=== PATIENT | male | born 1985 | race Caucasian/White ===

== ENCOUNTER 2016-09-17 18:11 | Emergency (ER) | payer OTHER ==
[~2016-09-17] VITALS: Ht 180.3 cm; Wt 104.1 kg
[2016-09-17 18:21] VITALS: Ht 180.3 cm; Wt 104.1 kg
[2016-09-17] MEDS ORDERED: OXYCODONE/ACETAMINOPHEN 5-325 TAB PO ONE (18:30)
--- NOTE | 2016-09-17 18:35 | EMERGENCY ROOM VISIT NOTE ---
History Report prepared by Raheem: Kailey Hawkins Under the Supervision of: Dr. Kj Miranda M.D. First contact with patient: 18:26 Chief Complaint: FALL Stated Complaint: FELL OFF OF 12FT LEDGE,HIT HEAD & LF SHOULDER History of Present Illness The patient is a 30 year old male who presents to the Emergency Room with complaints of an episode of a fall occurring 1.5 hours [employer]. He was on a ledge and fell 12-15 feet from the ledge, landing [place]. He went through a layer of ice in [place]. He states that he landed on the right side of his head. The patient denies LOC. He is currently experiencing right sided head pain, headache, right neck pain, and right shoulder pain. Movement exacerbates his pain. The patient rates his pain as an 8/10 in severity. He denies back pain, abdominal pain, and leg pain. Source of History: patient Onset: 1.5 hours [employer] Position: other (global) Symptom Intensity: 8/10 Timing: other (episode) Modifying Factors (Worsening): movement Associated Symptoms: + headache, + neck pain, No LOC, No abdominal pain, No back pain Note: Pt reports right shoulder pain. Review of Systems See HPI for pertinent positives & negatives. A total of 10 systems reviewed and were otherwise negative. Past Medical & Surgical Medical Problems: (1) Ankle pain (2) Ankle pain (3) Effusion of right elbow (4) Finger laceration involving tendon (5) Right elbow pain Family History No pertinent history stated. Social History Smoking Status: Never Smoker Marital Status: Housing Status: lives with family Occupation Status: employed Current/Historical Medications Scheduled PRN Oxycodone/Acetaminophen 5MG/325MG (Percocet 5MG/325MG), 1-2 TAB PO Q4H PRN for Pain Allergies Coded Allergies: Morphine (Unverified Allergy, Unknown, INTOLERANCE, 09/17/16) Physical Exam Vital Signs Date Time Temp Pulse Resp B/P Pulse Ox O2 Delivery O2 Flow Rate FiO2 09/17/16 19:59 37.1 76 18 111/76 99 09/17/16 19:45 76 18 111/76 99 Room Air 09/17/16 18:47 81 18 148/103 99 Room Air 09/17/16 18:39 84 09/17/16 18:28 143/101 09/17/16 18:21 37.1 77 18 158/96 98 Room Air Physical Exam GENERAL: Patient is a healthy-appearing well-nourished 30 year old male. HEAD: Normocephalic atraumatic EYES: Ocular movements intact pupils equal and react to light OROPHARYNX mucous membranes are moist no exudates present no erythema or edema present NECK: Cervical collar in place, tender to C3 area, no nuchal rigidity CHEST: Good equal expansion LUNGS: Clear and equal to auscultation CARDIAC: Normal S1 and S2 ABDOMEN: Soft nontender no guarding BACK: No CVA tenderness EXTREMITIES: No pain upon palpation normal muscle strength in all groups no clubbing cyanosis or edema. Tender to the right subscapular area, good ROM of the right shoulder, right arm is neurovascularly intact. NEURO: Patient is following commands is answering questions appropriately. Alert and oriented x3 Cranial Nerves 2-12 grossly intact Medical Decision & Procedures ER Provider Diagnostic Interpretation: Radiology results as stated below per my review and radiologist interpretation: RIGHT SHOULDER 3 VIEWS HISTORY: Pt c/o Rt shoulder pain s/p fall Right COMPARISON: None. FINDINGS: There is no fracture or dislocation. Soft tissues are unremarkable. No radiopaque foreign bodies. Mild thickening of the mid shaft of the right clavicle is likely due to an old, healed fracture. Mild AC joint arthropathy. IMPRESSION: No acute fracture or dislocation within the right shoulder. Electronically signed by: Lauri Ward M.D. 09/17/2016 7:31 PM Dictated Date/Time: 09/17/2016 7:[address]AST CT DOSE: 1163.18 mGy.cm HISTORY: Pt c/o 12 foot fall, head injury TECHNIQUE: Multiaxial CT images of the head were performed without the use of intravenous contrast. Automated exposure control was utilized for this study. Comparison: None. Findings: The paranasal sinuses and mastoid air cells are clear. The calvarium and skull base are intact. The ventricles and sulci are within normal limits. There is no mass, hematoma, midline shift, or acute infarct. Mild right posterior scalp swelling. Impression: No acute intracranial abnormality. Electronically signed by: Lauri Ward M.D. 09/17/2016 6:53 PM Dictated Date/Time: 09/17/2016 6:49 PM CHEST ONE VIEW PORTABLE HISTORY: Pt c/o Rt shoulder pain s/p fall COMPARISON: Chest 04/27/2012. FINDINGS: The lungs are clear. Cardiac silhouette is normal in size. No pleural effusions. No pneumothorax. There appears to be an old, healed right clavicle fracture. Increased markings within the left lateral lung base favors overlapping soft tissue. IMPRESSION: No acute process. Electronically signed by: Lauri Ward M.D. 09/17/2016 7:33 PM Dictated Date/Time: 09/17/2016 7:[address] DOSE: HISTORY: Pt c/o fall, right sided neck pain TECHNIQUE: Multiaxial CT images of the cervical spine were performed and reformatted in the sagittal and coronal plane without the use of contrast. COMPARISON: None. FINDINGS: No fractures. No subluxation. Prevertebral soft tissues and the C1-C2 interval are intact. No pneumothorax. Old, healed right clavicle fracture. IMPRESSION: No fractures within the cervical spine. Electronically signed by: Lauri Ward M.D. 09/17/2016 6:57 PM Dictated Date/Time: 09/17/2016 6:53 PM Medications Administered Medications (Trade) Dose Ordered Sig/Andres Route Start Time Stop Time Status Last Admin Dose Admin Oxycodone/ Acetaminophen (Percocet 5-325MG Tab) 2 tab NOW ONCE PO 09/17/16 18:30 09/17/16 18:31 DC 09/17/16 18:53 2 TAB ED Course 1825: Past medical records reviewed. The patient was evaluated in room A1. A complete history and physical examination was performed. 1829: Percocet 5-325 mg 1 tab PO 1941: I reassessed the patient at this time. He is feeling better and resting comfortably. I discussed the results and treatment plan with the patient. I answered all pertaining questions that he had. He expressed understanding and verbalized agreement. The patient will be discharged home. Medical Decision Differential diagnosis: Etiologies such as fracture, dislocation, intra-abdominal, pneumothorax, intrathoracic , intracranial, neurologic, as well as other traumatic pathologies were entertained. This is a 30-year-old male who presents emergency department After a 12 foot fall into a [place]. The patient is neurovascularly intact upon arrival. He is complaining of neck pain. For this reason sent for CAT scan of the head neck lower back. Patient's CAT scans do not show any evidence of acute fracture dislocation. Keeps also sent for x-rays of the shoulder which did not show any evidence of acute fracture dislocation. The patient was given Percocet in the emergency department. Repeat examination revealed improvement patient's symptoms. I do believe the patient is well enough to be discharged home for follow-up with the patient's primary care doctor. Patient was in agreement with the treatment plan. Impression Primary Impression: Head injury Additional Impressions: Neck pain Shoulder pain, right Fall Scribe Attestation The scribe's documentation has been prepared under my direction and personally reviewed by me in its entirety. I confirm that the note above accurately reflects all work, treatment, procedures, and medical decision making performed by me. Departure Information Dispostion Home / Self-Care Prescriptions Oxycodone/Acetaminophen 5MG/325MG (PERCOCET 5MG/325MG) Tab 1-2 TAB PO Q4H Y for Pain, #14 TAB Prov: Kj Miranda MD 09/17/16 Referrals Demetris Zaragoza MD (PCP) Forms HOME CARE DOCUMENTATION FORM, IMPORTANT VISIT INFORMATION, School Instructions, Work Instructions Patient Instructions ED Head Injury Closed, ED Neck Back Pain General, ED Shoulder Pain [facility], [facility] Additional Instructions Follow up with DR Ayala's office for continued pain within one week You received narcotic or benzodiazepene medication while in the emergency room today. Do not drive, operate heavy machinery, or drink alcohol under the influence of this medication. Take 600 mg Ibuprofen every 6 hours Take Percocet for breakthrough pain You have been examined and treated today on an emergency basis only. This is not a substitute for, or an effort to provide, complete comprehensive medical care. It is impossible to recognize and treat all injuries or illnesses in a single emergency department visit. It is therefore important that you follow up closely with Dr Zaragoza. Call as soon as possible for an appointment. Thank you for your time and consideration. I look forward to speaking with you again soon. Please don't hesitate to call us if you have any questions. Problem Qualifiers Primary Impression: Head injury Encounter type: initial encounter Qualified Codes: S09.90XA - Unspecified injury of head, initial encounter Additional Impressions: Shoulder pain, right Chronicity: acute Qualified Codes: M25.511 - Pain in right shoulder Fall Encounter type: initial encounter Qualified Codes: W19.XXXA - Unspecified fall, initial encounter
--- NOTE | 2016-09-17 18:55 | DIAGNOSTIC IMAGING REPORT ---
HEAD CT NONCONTRAST CT DOSE: 1163.18 mGy.cm HISTORY: Pt c/o 12 foot fall, head injury TECHNIQUE: Multiaxial CT images of the head were performed without the use of intravenous contrast. Automated exposure control was utilized for this study. Comparison: None. Findings: The paranasal sinuses and mastoid air cells are clear. The calvarium and skull base are intact. The ventricles and sulci are within normal limits. There is no mass, hematoma, midline shift, or acute infarct. Mild right posterior scalp swelling. Impression: No acute intracranial abnormality. Electronically signed by: Lauri Ward M.D. 09/17/2016 6:53 PM Dictated Date/Time: 09/17/2016 6:49 PM
--- NOTE | 2016-09-17 18:59 | DIAGNOSTIC IMAGING REPORT ---
CERVICAL SPINE CT CT DOSE: HISTORY: Pt c/o fall, right sided neck pain TECHNIQUE: Multiaxial CT images of the cervical spine were performed and reformatted in the sagittal and coronal plane without the use of contrast. COMPARISON: None. FINDINGS: No fractures. No subluxation. Prevertebral soft tissues and the C1-C2 interval are intact. No pneumothorax. Old, healed right clavicle fracture. IMPRESSION: No fractures within the cervical spine. Electronically signed by: Lauri Wrad M.D. 09/17/2016 6:57 PM Dictated Date/Time: 09/17/2016 6:53 PM
--- NOTE | 2016-09-17 19:33 | DIAGNOSTIC IMAGING REPORT ---
RIGHT SHOULDER 3 VIEWS HISTORY: Pt c/o Rt shoulder pain s/p fall Right COMPARISON: None. FINDINGS: There is no fracture or dislocation. Soft tissues are unremarkable. No radiopaque foreign bodies. Mild thickening of the mid shaft of the right clavicle is likely due to an old, healed fracture. Mild AC joint arthropathy. IMPRESSION: No acute fracture or dislocation within the right shoulder. Electronically signed by: Lauri Ward M.D. 09/17/2016 7:31 PM Dictated Date/Time: 09/17/2016 7:29 PM
--- NOTE | 2016-09-17 19:35 | DIAGNOSTIC IMAGING REPORT ---
CHEST ONE VIEW PORTABLE HISTORY: Pt c/o Rt shoulder pain s/p fall COMPARISON: Chest 04/27/2012. FINDINGS: The lungs are clear. Cardiac silhouette is normal in size. No pleural effusions. No pneumothorax. There appears to be an old, healed right clavicle fracture. Increased markings within the left lateral lung base favors overlapping soft tissue. IMPRESSION: No acute process. Electronically signed by: Lauri Ward M.D. 09/17/2016 7:33 PM Dictated Date/Time: 09/17/2016 7:30 PM
[2016-09-17] MEDS ORDERED: OXYC-57 PO (19:47)
[2016-09-17 19:59] VITALS: BP 111/76; PULSE 76; TEMP 37.1; O2SAT 99
== END 2016-09-17 19:59 | disposition home or self-care (01) ==
LOC: C.EDB 18:12 → C.ED 19:59
DX: S09.90XA Unspecified injury of head, initial encounter (principal); M25.511 Pain in right shoulder; M54.2 Cervicalgia; W17.89XA Other fall from one level to another, initial encounter

== ENCOUNTER 2017-07-28 11:24 | Emergency (ER) | payer OTHER ==
[~2017-07-28] VITALS: Ht 180.3 cm; Wt 105.1 kg
[2017-07-28 11:28] VITALS: TEMP 36.5; Ht 180.3 cm; Wt 105.1 kg
[2017-07-28] MEDS ORDERED: MoRPHine SULFATE 4 MG/ML 1 ML CARP\\VIAL IV STA (11:39)
[2017-07-28] MEDS ORDERED: ONDANSETRON INJ 2 MG/ML 2 ML VIAL IV STA (11:39)
[2017-07-28] MEDS ORDERED: CEFAZOLIN SOD 1000MG/5 ML IV PUSH IV STA (11:39)
[2017-07-28 11:48] VITALS: O2SAT 98
[2017-07-28] MEDS ORDERED: MoRPHine SULFATE 10 MG/ML CARP/VIAL IV STA (12:00)
[2017-07-28] MEDS ORDERED: XYLOCAINE 1%/SOD BICARB 20 ML VIAL INFIL ONE (12:15)
[2017-07-28] MEDS ORDERED: BUPIVACAINE 0.5 % 5 MG/1 ML MPF 30ML VIAL INFIL ONE (12:15)
--- NOTE | 2017-07-28 12:22 | DIAGNOSTIC IMAGING REPORT ---
R HAND MIN 3 VIEWS ROUTINE CLINICAL HISTORY: RIGHT, 2ND FINGER CAUGHT IN WOOD SPLITTER COMPARISON STUDY: None. FINDINGS: Slightly comminuted fractures at the base of the proximal phalanx of the right index finger with an associated overlying soft tissue laceration. The fracture slightly distracted. No dislocation. No radiopaque foreign bodies. IMPRESSION: Slightly comminuted and distracted fracture at the base of the proximal phalanx of the right index finger. Electronically signed by: Lauri Ward M.D. 07/28/2017 12:21 PM Dictated Date/Time: 07/28/2017 12:20 PM
[2017-07-28] MEDS ORDERED: CEPH500C2 PO (13:58)
[2017-07-28] MEDS ORDERED: OXYC1TAB3 PO (13:58)
--- NOTE | 2017-07-28 13:59 | EMERGENCY ROOM VISIT NOTE ---
ED Visit Note First contact with patient: 11:33 CHIEF COMPLAINT: Right second finger injury from a wood splitter HISTORY OF PRESENT ILLNESS: Patient is a [id number] 31-year-old white male who presents the emergency department accompanied by his for evaluation of a crush injury to the right second finger that he sustained just prior to arrival. He was wearing soft gloves, and accidentally caught the right second finger caught in the wood splitter, sustaining a crush injury to the right second finger. He did not remove the glove, and held pressure over the glove. He notes a constant, throbbing 10/10 pain. He denies any numbness or tingling. REVIEW OF SYSTEMS: Review of systems as per HPI. All other systems reviewed were negative. 10 systems reviewed. PMH: Electronic medical records are reviewed and summarized as above/below. See Problem List. Tetanus up-to-date, given in 2012. SOCIAL HISTORY: Patient lives at home with his family. He does not smoke. PHYSICAL EXAM: Vital Signs: Reviewed Nurse's notes. CONSTITUTIONAL: Patient is an expected be uncomfortable otherwise well appearing 31-year-old white female who is awake and alert and in mild distress due to his injury. MUSCULOSKELETAL : Examination of the right hand show a large laceration on the dorsal aspect of the right second finger, extending into the web space between the second and third finger, and terminating on the palmar aspect of the hand. The patient's right second finger is flexed at the PIP joint. Flap laceration was reflected, and proximal phalanx is visualized in the base of the wound with complete disruption of the extensor tendon structures between the MCP and the PIP. The patient can extend at the MCP only. He is able to flex the finger at the DIP joint the PIP and MCP. Sensation to light touch is grossly intact over the entire left second finger. There is no active pulsatile bleeding. Capillary refill is less than 2 seconds. Laceration measures 12 cm in length. EMERGENCY DEPARTMENT COURSE: The patient was seen and assessed as above. IV lock was initiated. He was medicated with a total of morphine 10 mg IV and Zofran 4 mg IV. He did given 1 g of Ancef IV. X-rays of the right hand were obtained. He has a distracted, comminuted fracture at the base of the right second proximal phalanx. After cleansing the base of the finger thoroughly with Betadine, a digital block was performed using a 2:1 mixture buffered lidocaine and 0.5% Sensorcaine. When adequate anesthesia was obtained, the finger was prepped thoroughly with Betadine, and draped sterilely. Wound was irrigated copiously using 250 mL of normal saline solution. There was no gross contamination or foreign debris in the wound. As stated above, the patient suffered a and injury to the extensor tendon between the MCP and the PIP. The proximal phalanx fracture was also visualized and palpable in the base of the wound. The finger could be fully extended passively, but the patient was in able to maintain extension on his own. The laceration was then repaired using 26 5-0 nylon sutures. The patient tolerated the procedure well. I did review patient' s injury and finger evaluation with attending physician, and with Dr. Reynolds of [facility]. He evaluated the patient in the emergency department, and plans to take the patient to the OR tomorrow. The patient was placed in a long metal finger splint in a position of comfort. He will be placed on Keflex due to the open fracture and the tendon disruption. He was provided oxycodone for pain. He was discharged home with family who were driving. Patient rated his discomfort a 7/10 at discharge. Differential diagnoses entertained include fracture, dislocation, nerve, vascular or tendon injury, among others. Medication reconciliation: I attest that I have personally reviewed the patient' s current medication list. Blood pressure screening : Patient was found to have normal blood pressure on screening and does not require follow-up. R HAND MIN 3 VIEWS ROUTINE CLINICAL HISTORY: RIGHT, 2ND FINGER CAUGHT IN WOOD SPLITTER COMPARISON STUDY: None. FINDINGS: Slightly comminuted fractures at the base of the proximal phalanx of the right index finger with an associated overlying soft tissue laceration. The fracture slightly distracted. No dislocation. No radiopaque foreign bodies. IMPRESSION: Slightly comminuted and distracted fracture at the base of the proximal phalanx of the right index finger. Problem List Medical Problems: (1) Ankle pain Status: Resolved (2) Ankle pain Status: Resolved (3) Effusion of right elbow Status: Resolved (4) Fall Status: Resolved (5) Finger laceration involving tendon Status: Resolved (6) Head injury Status: Resolved (7) Neck pain Status: Resolved (8) Right elbow pain Status: Resolved (9) Shoulder pain, right Status: Resolved Current/Historical Medications Scheduled Cephalexin Monohydrate (Keflex), 500 MG PO TID Scheduled PRN Oxycodone Immediate Rel Tab (Roxicodone Ir), 1-2 TAB PO Q4H PRN for Severe Pain Allergies Coded Allergies: Morphine (Unverified Allergy, Unknown, INTOLERANCE, 09/17/16) Vital Signs Date Time Temp Pulse Resp B/P (MAP) Pulse Ox O2 Delivery O2 Flow Rate FiO2 07/28/17 14:17 66 16 135/77 98 Room Air 07/28/17 12:17 63 07/28/17 11:48 59 20 122/70 98 Room Air 07/28/17 11:48 98 Room Air 07/28/17 11:28 36.5 71 18 136/72 97 Room Air Medications Administered Medications (Trade) Dose Ordered Sig/Andres Route Start Time Stop Time Status Last Admin Dose Admin Cefazolin Sodium (Cefazolin 1000mg Iv Push) 1,000 mg NOW STAT IV 07/28/17 11:39 07/28/17 11:41 DC 07/28/17 11:56 1,000 MG Ondansetron HCl (Zofran Inj) 4 mg NOW STAT IV 07/28/17 11:39 07/28/17 11:41 DC 07/28/17 11:46 4 MG Morphine Sulfate (MoRPHine SULFATE INJ) 4 mg NOW STAT IV 07/28/17 11:39 07/28/17 11:41 DC 07/28/17 11:46 4 MG Morphine Sulfate (MoRPHine SULFATE INJ) 6 mg NOW STAT IV 07/28/17 12:00 07/28/17 12:01 DC 07/28/17 12:05 6 MG Lidocaine HCl (Buffered Lidocaine 1% Inj) 20 ml ONE ONCE INFIL 07/28/17 12:15 07/28/17 12:16 DC 07/28/17 12:15 20 ML Bupivacaine HCl (Marcaine 0.5% MPF Inj) 30 ml NOW ONCE INFIL 07/28/17 12:15 07/28/17 12:16 DC 07/28/17 12:15 30 ML Oxycodone HCl (Roxicodone Immediate Rel Tab) 10 mg NOW STAT PO 07/28/17 14:39 07/28/17 14:40 DC 07/28/17 14:43 10 MG Departure Information Impression Primary Impression: Open fracture of finger of right hand Additional Impression: Finger laceration involving tendon Prescriptions Oxycodone Immediate Rel Tab (ROXICODONE IR) 5 Mg Tab 1-2 TAB PO Q4H Y for Severe Pain, #30 TAB For Initial Treatment Prov: Margot Moulton PA 07/28/17 Cephalexin Monohydrate (KEFLEX) 500 Mg Cap 500 MG PO TID, #40 CAP Prov: Margot Moulton PA 07/28/17 Referrals Demetris Zaragoza MD (PCP) Rodrigo Reynolds D.O. Patient Instructions [facility] Additional Instructions DO NOT drive, drink alcohol, operate machinery, or perform dangerous activities today. You were given medications in the ER that can affect your ability to safely function or operate a vehicle. Oxycodone (OxyIR) 5mg: Take 1-2 pills every four hours for breakthrough pain. Avoid alcohol, operating machinery or dangerous equipment, working on ladders or roofs, DRIVING, or situations where being under the influence may be dangerous. It is recommended to use an qcef-rfs-jycrkbi stool softener such as Colace, 100mg twice daily while taking this medication to avoid constipation. Cephalexin(Keflex) 500mg: Take one pill four times daily for 10 days for your skin infection. All antibiotics can cause diarrhea. If this occurs and you feel worse or it does not resolve in 1-2 days follow up with your doctor or return to the Emergency Department as this could be signs of serious underlying problems. Any medication can cause an allergic reaction, stop the pills immediately and return to the ER for rash, hives, breathing difficulties, or swelling. Ibuprofen(Motrin, Advil) may be used for fever or pain. Use 600mg every six hours as needed. Take with food. Avoid using more than 2400mg in a 24 hour period. Do not use 2400mg per day for more than three consecutive days without physician direction. Prolonged inappropriate use can lead to stomach upset or ulcers. (AND/OR) Acetaminophen(Tylenol) may be used for fever or pain. Use 1000mg every six hours as needed. Avoid using more than 3000mg in a 24 hour period. Keep wound clean and dry. Do not allow any crusting or dried blood to accumulate on sutures. Clean gently with mild soap and water. Use an antibiotic ointment for 3-4 days, then let wound dry. Return sooner for any signs of infection (increasing redness, swelling, drainage). Ice and elevate for swelling and pain. Wear the metal finger splint at all times. May remove for wound care only. Cover the hand to shower. Follow-up with [facility] as discussed. Problem Qualifiers
[2017-07-28 14:17] VITALS: BP 135/77; PULSE 66; O2SAT 98
[2017-07-28] MEDS ORDERED: OXYCODONE HCL IR 5 MG TAB (IMMEDIATE RELEASE) PO STA (14:39)
--- NOTE | 2017-07-28 15:35 | ORTHOPEDIC CONSULTATION ---
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 He had his right hand caught in log splitter. He was wearing soft gloves and sustained a crush injury to the right second digit. He did not remove the glove and he held pressure over the glove. He is noted to have a 10/10 pain, presented to the ER and seen by the Emergency Department physician senior office assistant who evaluated him and had x-rays performed. He is noted to have an open fracture of the proximal phalanx of the right index finger and an extensor tendon laceration. He had evaluation, administration of local anesthesia, copious irrigation of the right hand with sterile normal saline and after sterile prep, had the tissue flaps reapproximated with suture. He had a sterile compressive dressing and 1% lidocaine anesthesia after the hand was assessed. He was given 1 gram of Ancef and 10 mg of IV morphine. After the wound was repaired with suture, I was available to evaluate the patient and his injury. PAST MEDICAL HISTORY: Denies. Tetanus up to date, given in 2012. PAST SURGICAL HISTORY: Noncontributory. ALLERGIES: No known drug allergies. MEDICATIONS: Denies. SOCIAL HISTORY: He is employed as a gayathri. He is right-hand dominant. He has and children. Denies tobacco or drug use. He drinks occasionally. PHYSICAL EXAMINATION: GENERAL: This is a well-nourished, well-hydrated, 31-year-old right-hand dominant male who is present with his at bedside. He is lying supine in the hospital on the ER transfer cart. EXTREMITIES: Examination of the right hand demonstrates dorsal and volar lacerations adjacent to the right index finger. He is unable to actively extend the right index finger. Flexion is intact. He has tenderness to palpation at the proximal phalanx. He does have some sensation of the distal right index finger. Capillary refill is brisk, less than 2 seconds. There is some crepitation with palpation at the proximal phalanx of the right index finger. Rotational alignment is grossly well aligned on the right index finger. There is no significant ecchymosis of the digit. Some local erythema of the right index finger. No other involved lacerations of any associated digits or palm. IMAGING STUDIES: Radiograph demonstrates a mildly comminuted slightly displaced fracture of the proximal phalanx of the right index finger. No significant rotational abnormality. IMPRESSION: 1. Right index finger proximal phalanx fracture. 2. Extensor tendon laceration index finger. 3. Skin laceration, right index finger and palm. 4. Log splitter crush injury. RECOMMENDATION: The patient will continue on p.o. Keflex and Zofran as needed for nausea as well as oxycodone IR 5 mg 1-2 q. 4 hours p.r.n. pain, Keflex 500 mg 1 p.o. q.i.d. for 10 days, [id number] anti-inflammatories as needed. He will be n.p.o. after midnight as discussed with the patient and he will follow up at [facility] surgery center at 06:50 a.m. tomorrow for a planned surgical fixation of his proximal phalanx fracture and repair of extensor tendon laceration. This was discussed with the patient and the Emergency Department PA, all voiced understanding. The patient will continue with a soft dressing and volar Alumafoam splint and will be seen for definitive management in the morning. Thank you for the opportunity to consult in the care of this patient. SARI
== END 2017-07-28 14:48 | disposition home or self-care (01) ==
LOC: C.EDB 11:25 → C.EDD 14:48
DX: S62.610B Displaced fracture of proximal phalanx of right index finger, initial encounter for open fracture (principal); S66.520A Laceration of intrinsic muscle, fascia and tendon of right index finger at wrist and hand level, initial encounter; W31.89XA Contact with other specified machinery, initial encounter; Y93.89 Activity, other specified; Y99.8 Other external cause status; Z91.81 History of falling

== ENCOUNTER 2017-08-15 04:49 | Inpatient (IN) | payer OTHER ==
[~2017-08-15] VITALS: Ht 180.3 cm; Wt 102.9 kg
[~2017-08-15 04:49] MED LIST: CEPH500C2 PO; OXYC1TAB3 PO
[2017-08-15] MEDS ORDERED: KETOROLAC TROMETHAMINE 30 MG/ML VIAL IV STA (05:20)
[2017-08-15] MEDS ORDERED: LEVO1TAB33 PO (05:22)
[2017-08-15] MEDS ORDERED: ACET-1256 PO (05:23)
[2017-08-15] MEDS ORDERED: IBUP-1450 PO (05:24)
[2017-08-15] MEDS ORDERED: BENZ100C84 PO (05:25)
[2017-08-15] MEDS ORDERED: SODIUM CHLORIDE 0.9% 1000ML 1,000 ML IV ONE (05:30)
[2017-08-15 05:49] LABS: BASO % 0.1 %; BASO ABS # 0.01 K/uL (0-0.2); COMPLETE YES; EOS % 0.8 %; IG% 0.5 %; LYMPH % 8.8 %; LYMPH ABS # 1.16 K/uL (1.2-3.4); MEAN CELL VOLUME 89.8 fL (80-100); MEAN CORPUSCULAR HEMOGLOBIN 31.3 pg (25-34); MEAN CORPUSCULAR HGB CONC 34.9 g/dl (32-36); MONO % 9.6 %; NEUT % 80.2 %; PLATELET COUNT 275 K/uL (130-400); RED BLOOD COUNT 4.79 M/uL (4.7-6.1); WHITE BLOOD COUNT 13.25 K/uL (4.8-10.8)
[2017-08-15 05:56] LABS: BUN/CREATININE RATIO 11.3 (10-20); CALCIUM 8.9 mg/dl (8.5-10.1); CREATININE 1.08 mg/dl (0.60-1.40); POTASSIUM 3.6 mmol/L (3.5-5.1)
[2017-08-15 05:59] LABS: ALB/GLOB RATIO 0.7 (0.9-2)
[2017-08-15] MEDS ORDERED: OPTIRAY 320 IV PRN (06:15)
--- NOTE | 2017-08-15 07:23 | DIAGNOSTIC IMAGING REPORT ---
(CHEST FOR PE) ANGIO WITH CLINICAL HISTORY: 31 years-old Male presenting with ^Chest pain. Elevated dimer and trop.. TECHNIQUE: Multidetector CT angiography of the chest was performed after administration of intravenous contrast. 3-D volumetric and/or maximum intensity projection (MIP) images were subsequently reconstructed for review. IV contrast: 94 mL of Optiray 320. A dose lowering technique was used consistent with the principles of ALARA (as low as reasonably achievable). COMPARISON: Chest x-ray performed earlier the same day. CT DOSE (mGy.cm): The estimated cumulative dose is 647.29 mGy.cm. FINDINGS: Chandelier Maker topogram: Unremarkable. Pulmonary vasculature: The study is suboptimal given the timing of the contrast bolus and mild respiratory artifact limiting evaluation of subsegmental pulmonary arteries. Allowing for this, no central filling defect to suggest pulmonary embolus. Main pulmonary artery is not enlarged. No flattening of the interventricular septum. No intracardiac intracardiac filling defect. No reflux of contrast into the hepatic veins. Remaining chest: On soft tissue windows, normal thyroid and thoracic inlet. Small bilateral prominent hilar lymph nodes. Normal aorta. Normal heart size. No pericardial or pleural effusion. Upper abdomen normal. On lung windows, solid fissural 5 mm nodule in the right lower lobe (series 4 image 173) minimal mosaic attenuation at the lung bases could relate to the phase of respiration or indicate small airways disease. Mild bronchial wall thickening most pronounced in the lower lobes. Solid peripheral/subpleural 7 mm nodule in the left lower lobe (series 4 image 122). On bone windows, normal osseous structures. IMPRESSION: 1. No evidence of a central pulmonary embolus allowing for the timing of the contrast bolus and respiration. No acute intrathoracic pathology. 2. Two solid pulmonary nodules, one in the right lower lobe measuring 5 mm and one in the left lower lobe measuring 7 mm. Follow-up per Gabriel Society 2017 recommendations below. Please refer to below summary of Fleischner Society 2017 recommendations for follow-up of incidental CT nodules (Emerita Mcdowell et al. Guidelines for management of incidental pulmonary nodules detected on CT images: From the Fleischner Society 2017. Radiology 2017; 284: 228-243.) SOLID NODULES Single nodule; size < 6 mm * Low risk patients: No routine follow-up * High risk patients: Optional CT at 12 months Single nodule; size 6-8 mm * Low risk patients: CT at 6-12 months, then consider CT at 18-24 months * High risk patients: CT at 6-12 months, then at 18-24 months Single nodule; size > 8 mm * Either low or high risk patients: Considered CT at 3 months, PET/CT, or tissue sampling Multiple nodules; size < 6 mm * Low risk patients: No routine follow up * High risk patients: Optional CT at 12 months Multiple nodules; size 6-8 mm * Low risk patients: CT at 3-6 months, then consider CT at 18-24 months * High risk patients: CT at 3-6 months, then at 18-24 months Multiple nodules; size > 8 mm * Low risk patients: CT at 3-6 months, then consider at 18-24 months * High risk patients: CT at 3-6 months, then at 18-24 months Note: These guidelines apply to incidental nodules. These guidelines do not apply to patients younger than 35 years, immunocompromised patients, or patients with cancer. * Low risk patients: Minimal or absent history of smoking and/or other known risk factors * High risk patients: History of smoking, exposure to other carcinogens, emphysema, fibrosis, upper lobe location, family history of lung cancer, etc. * If a nodule up to 8 mm is partly solid or is ground glass, further follow-up is required after 24 months to exclude possible slow growing adenocarcinoma. SUBSOLID NODULES Single ground-glass nodule * Nodule size < 6 mm: No routine follow-up * Nodule size > or = 6 mm: CT at 6-12 months to confirm persistence, then CT every 2 years until 5 years Single part-solid nodule * Nodule size < 6 mm: No routine follow-up * Nodules size > or = 6 mm: CT at 3-6 months to confirm persistence. If unchanged and solid component remains < 6 mm, annual CT should be performed for 5 years Multiple nodules * Nodule size < 6 mm: CT at 3-6 months. If stable, consider CT at 2 and 4 years. * Nodules size > or = 6 mm: CT at 3-6 months. Subsequent management based on the most suspicious nodule(s) Electronically signed by: Ferny Walter M.D. 08/15/2017 7:22 AM Dictated Date/Time: 08/15/2017 7:13 AM
--- NOTE | 2017-08-15 07:38 | DIAGNOSTIC IMAGING REPORT ---
SINGLE VIEW CHEST CLINICAL HISTORY: Cough and fever. FINDINGS: An AP, portable, upright chest radiograph is compared to study dated 09/17/2016. The examination is degraded by portable technique and patient rotation. The cardiomediastinal silhouette is unremarkable. The lungs and pleural spaces are clear. No pneumothorax is seen. The bony thorax is grossly intact. IMPRESSION: No active disease in the chest. Electronically signed by: Carlos Roberts M.D. 08/15/2017 7:37 AM Dictated Date/Time: 08/15/2017 7:37 AM
[2017-08-15] MEDS ORDERED: ASPIRIN 324 MG CHEW PO STA (07:40)
--- NOTE | 2017-08-15 07:46 | EMERGENCY ROOM VISIT NOTE ---
ED Visit Note First contact with patient: 04:57 Patient seen and evaluated at bedside. Patient with no active complaints. Updated on all results and concerns given elevated troponin. CTA chest negative. No other obvious explanation for elevated troponin. Patient with no risk factors and the significant family history for early onset CAD. Doubt ACS. No evidence of other vascular etiology. Patient agreeable with plan for admission for additional evaluation and testing.
--- NOTE | 2017-08-15 07:53 | EMERGENCY ROOM VISIT NOTE ---
History First contact with patient: 04:57 Chief Complaint: CHEST PAIN Stated Complaint: CHEST PAIN 8/10,CHILLS AND FEVER FOR 48HR Nursing Triage Summary: midsternal cp that started last night at 1800,also c/o fever and chills since saturday, History of Present Illness The patient is a 31 year old male who presents to the Emergency Room with complaints of intermittent episodes of chest pain that is midsternal the began approximately 11 hours prior to arrival. The patient has a recent history of right hand surgery performed roughly 15 days ago at [facility]. He states that earlier this week he developed a fever of 103 to 104F. The patient went to his primary care physician where he had a negative influenza swab and normal chest x-ray. The patient has taken 3 days of Tamiflu and Levaquin at this point. He considers himself usually healthy without chronic medical disease. He does have a cough with this pain, however does not feel the chest pain is related to the cough. He has been alternating Advil and Tylenol at home, which does help with body aches and his temperature. He does not have additional complaints. Review of Systems More than 10 systems were reviewed and otherwise negative with the exception of history of present illness. Past Medical/Surgical History Medical Problems: (1) Ankle pain (2) Ankle pain (3) Effusion of right elbow (4) Fall (5) Finger laceration involving tendon (6) Head injury (7) Neck pain (8) No Known Active Medical Problems (9) Right elbow pain (10) Shoulder pain, right Family History No pertinent family history Social History Smoking Status: Never Smoker Marital Status: Housing Status: lives with family Occupation Status: employed Current/Historical Medications Scheduled Levofloxacin (Levaquin), 500 MG PO DAILY Scheduled PRN Acetaminophen (Tylenol), 1,000 MG PO DIRECTED PRN for Pain or Fever Benzonatate (Tessalon Perles), 100 MG PO Q6 PRN for Cough Ibuprofen (Motrin), 200-600 MG PO DIRECTED PRN for Pain or Fever Physical Exam Vital Signs Date Time Temp Pulse Resp B/P (MAP) Pulse Ox O2 Delivery O2 Flow Rate FiO2 08/15/17 06:31 87 21 125/78 99 08/15/17 06:01 87 21 120/83 97 08/15/17 05:31 88 20 141/90 95 08/15/17 05:18 92 22 141/97 97 08/15/17 05:04 84 08/15/17 05:00 97 Room Air 08/15/17 04:51 36.5 83 18 150/101 99 Room Air Physical Exam VITALS: Vitals are noted on the nurse's note and reviewed by myself. Vital signs stable. GENERAL: Well-developed, well-nourished, white male, who is in no acute distress and resting comfortably. Patient is cooperative with the examination. HEAD: Normocephalic atraumatic. EARS: External ear normal. External auditory canals clear, tympanic membranes pearly pugh without erythema or effusion bilaterally. EYES: Pupils equal round and reactive to light and accommodation. Conjunctivae without injection, sclerae without icterus. Extraocular movements intact. NOSE: Patent, turbinates without inflammation or discharge. MOUTH: Mucous membranes moist. Tonsils are not enlarged. Pharynx without erythema, blood, or exudate. Uvula midline. Airway patent. NECK: Supple without nuchal rigidity. No lymphadenopathy. No thyromegaly. Cervical spine is nontender. HEART: Regular rate and rhythm without murmurs gallops or rubs. LUNGS: Clear to auscultation bilaterally without wheezes, rales or rhonchi. No retractions or accessory muscle use. ABDOMEN: Positive normal bowel sounds x 4. Soft, nontender, without masses or organomegaly. No guarding or rebound tenderness. MUSCULOSKELETAL: No muscle atrophy, erythema, or edema noted. Full range of motion without joint tenderness in all extremities. Negative Homans sign bilateral. There is a well-healing surgical wound along the right second digit. Medical Decision & Procedures ER Provider Diagnostic Interpretation: (CHEST FOR PE) ANGIO WITH CLINICAL HISTORY: 31 years-old Male presenting with ^Chest pain. Elevated dimer and trop.. TECHNIQUE: Multidetector CT angiography of the chest was performed after administration of intravenous contrast. 3-D volumetric and/or maximum intensity projection (MIP) images were subsequently reconstructed for review. IV contrast: 94 mL of Optiray 320. A dose lowering technique was used consistent with the principles of ALARA (as low as reasonably achievable). COMPARISON: Chest x-ray performed earlier the same day. CT DOSE (mGy.cm): The estimated cumulative dose is 647.29 mGy.cm. FINDINGS: Electrician Station Assistant topogram: Unremarkable. Pulmonary vasculature: The study is suboptimal given the timing of the contrast bolus and mild respiratory artifact limiting evaluation of subsegmental pulmonary arteries. Allowing for this, no central filling defect to suggest pulmonary embolus. Main pulmonary artery is not enlarged. No flattening of the interventricular septum. No intracardiac intracardiac filling defect. No reflux of contrast into the hepatic veins. Remaining chest: On soft tissue windows, normal thyroid and thoracic inlet. Small bilateral prominent hilar lymph nodes. Normal aorta. Normal heart size. No pericardial or pleural effusion. Upper abdomen normal. On lung windows, solid fissural 5 mm nodule in the right lower lobe (series 4 image 173) minimal mosaic attenuation at the lung bases could relate to the phase of respiration or indicate small airways disease. Mild bronchial wall thickening most pronounced in the lower lobes. Solid peripheral/subpleural 7 mm nodule in the left lower lobe (series 4 image 122). On bone windows, normal osseous structures. IMPRESSION: 1. No evidence of a central pulmonary embolus allowing for the timing of the contrast bolus and respiration. No acute intrathoracic pathology. 2. Two solid pulmonary nodules, one in the right lower lobe measuring 5 mm and one in the left lower lobe measuring 7 mm. Follow-up per Gabriel Society 2017 recommendations below. Laboratory Results 08/15/17 05:00 Red Blood Count 4.79, Mean Corpuscular Volume 89.8, Mean Corpuscular Hemoglobin 31.3, Mean Corpuscular Hemoglobin Concent 34.9, Mean Platelet Volume 10.0, Neutrophils (%) (Auto) 80.2, Lymphocytes (%) (Auto) 8.8, Monocytes (%) (Auto) 9.6, Eosinophils (%) (Auto) 0.8, Basophils (%) (Auto) 0.1, Neutrophils # (Auto) 10.63, Lymphocytes # (Auto) 1.16, Monocytes # (Auto) 1.27, Eosinophils # (Auto) 0.11, Basophils # (Auto) 0.01 08/15/17 05:00 Test 08/15/17 05:00 08/15/17 05:34 08/15/17 06:43 White Blood Count 13.25 K/uL (4.8-10.8) Red Blood Count 4.79 M/uL (4.7-6.1) Hemoglobin 15.0 g/dL (14.0-18.0) Hematocrit 43.0 % (42-52) Mean Corpuscular Volume 89.8 fL (80-100) Mean Corpuscular Hemoglobin 31.3 pg (25-34) Mean Corpuscular Hemoglobin Concent 34.9 g/dl (32-36) Platelet Count 275 K/uL (130-400) Mean Platelet Volume 10.0 fL (7.4-10.4) Neutrophils (%) (Auto) 80.2 % Lymphocytes (%) (Auto) 8.8 % Monocytes (%) (Auto) 9.6 % Eosinophils (%) (Auto) 0.8 % Basophils (%) (Auto) 0.1 % Neutrophils # (Auto) 10.63 K/uL (1.4-6.5) Lymphocytes # (Auto) 1.16 K/uL (1.2-3.4) Monocytes # (Auto) 1.27 K/uL (0.11-0.59) Eosinophils # (Auto) 0.11 K/uL (0-0.5) Basophils # (Auto) 0.01 K/uL (0-0.2) RDW Standard Deviation 41.3 fL (36.4-46.3) RDW Coefficient of Variation 12.6 % (11.5-14.5) Immature Granulocyte % (Auto) 0.5 % Immature Granulocyte # (Auto) 0.07 K/uL (0.00-0.02) Anion Gap 6.0 mmol/L (3-11) Est Creatinine Clear Calc Drug Dose 118.4 ml/min Estimated GFR () 104.7 Estimated GFR (Non- 90.3 BUN/Creatinine Ratio 11.3 (10-20) Calcium Level 8.9 mg/dl (8.5-10.1) Total Bilirubin 0.6 mg/dl (0.2-1) Aspartate Amino Transf (AST/SGOT) 99 U/L (15-37) Alanine Aminotransferase (ALT/SGPT) 42 U/L (12-78) Alkaline Phosphatase 101 U/L (45-117) Total Protein 8.3 gm/dl (6.4-8.2) Albumin 3.4 gm/dl (3.4-5.0) Globulin 4.9 gm/dl (2.5-4.0) Albumin/Globulin Ratio 0.7 (0.9-2) Lipase 72 U/L (73-393) Bedside D-Dimer > 450 ng/mlFEU (0-450) Bedside Lactic Acid Venous 1.27 mmol/L (0.90-1.70) Bedside Troponin I 19.980 ng/ml (0-0.045) Troponin I 27.800 ng/ml (0-0.045) Medications Administered Medications (Trade) Dose Ordered Sig/Andres Route Start Time Stop Time Status Last Admin Dose Admin Sodium Chloride 1,000 ml @ 999 mls/hr Q1H1M ONCE IV 08/15/17 05:30 08/15/17 06:30 DC 08/15/17 05:47 999 MLS/HR Ketorolac Tromethamine (Toradol Inj) 30 mg NOW STAT IV 08/15/17 05:20 08/15/17 05:22 DC 08/15/17 05:40 30 MG Aspirin (Aspirin Chew) 324 mg NOW STAT PO 08/15/17 07:40 08/15/17 07:41 DC 08/15/17 07:46 324 MG ECG Change: Sinus rhythm with Premature ventricular complexes or Fusion complexes @91bpm Otherwise normal ECG When compared with ECG of 27-APR-2012 16:29, Fusion complexes are now Present Premature ventricular complexes are now Present ED Course Physical exam and history were performed. Nursing notes, EMR, and Medication List were personally reviewed. Patient appears to have fever, chest pain, cough, and flulike symptoms for the past several days. He does have a surgical event that occurred roughly 2 weeks ago. On examination the patient appears well without significant additional findings. IV access was established and labs were obtained. Blood cultures, troponin, d-dimer, and lactic acid were gathered. EKG was performed and is as above without obvious ectopy or ST elevation. The patient was hydrated and medicated as above. The patient's blood work is as above and was reviewed. He does have an elevated white blood cell count of greater than 13,000. He does not have a significant anemia or gross electrolyte imbalance. Both the patient's d-dimer and troponin are elevated. The case was discussed with my attending physician, Dr. tucker, who also independently evaluated the patient and remain involved in care and decision making. Because of the elevated d-dimer I did elect to perform a CT scan of the chest. CT scan does not show obvious PE, pneumonia, pericardial effusion, or other etiology of the patient's symptoms. I did elect to repeat a lab troponin, as well as a repeat EKG. Repeat EKG was essentially identical to previous EKG. The lab troponin was elevated at 28. Overall the patient continues remain in stable condition here in the department. He does not appear toxic or with significant pain at this time. He does not appear to fit with an ACS history and currently does not meet STEMI criteria. He is felt to have more of a myocarditis picture, and ultimately will need to stay in the hospital. The case was discussed with the [facility] hospitalist, who agreed to evaluate the patient here in the department. Please see their dictation for further patient course, plan, and disposition. The chart was completed utilizing Edgeware Speech Voice Recognition Software. Grammatical errors, random word insertions, pronoun errors, and incomplete sentences are an occasional consequence of this system due to software limitations, ambient noise, and hardware issues. Any formal questions or concerns about the content, text, or information contained within the body of this dictation should be directly addressed to the provider for clarification. . Medical Decision Differential diagnosis includes, but is not limited to: Myocardial infarction, dysrhythmia, pericarditis, pneumothorax, aortic aneurysm/dissection, DVT/PE, anxiety, GERD, PUD, electrolyte imbalance, thyroid disorder, pneumonia, bronchitis, pancreatitis, and others Blood Pressure Screening Patient's blood pressure: Normal blood pressure Impression Primary Impression: Elevated troponin Additional Impressions: Chest pain Flu-like symptoms Departure Information Referrals Demetris Zaragoza MD (PCP) Patient Instructions [facility] Problem Qualifiers
[2017-08-15 08:05] VITALS: O2SAT 98; Ht 180.3 cm; Wt 102.9 kg
[2017-08-15] MEDS ORDERED: BENZONATATE 100MG CAP PO PRN (08:45)
[2017-08-15] MEDS ORDERED: ACETAMINOPHEN 325 MG TAB PO PRN (08:45)
[2017-08-15 08:50] LABS: CHOLESTEROL/HDL RATIO 4.5
--- NOTE | 2017-08-15 08:56 | History and Physical ---
History & Physical Date & Time of Service: Aug 15, 2017 at 08:38 Chief Complaint: Chest Pain 8/10,Chills And Fever For 48HR Primary Care Physician: Demetris Zaragoza MD History of Present Illness Source: patient, family 31 year old M with PMH of surgery of right hand from traumatic injury and s/p repair with metal fixations and completed 2 week course of Keflex on Saturday, also with 2 and half weeks of flu like symptoms, was found to have fever of 102.1 F on Saturday08/12/17 as per patient, then went to his primary care doctor's office on Saturday08/13/17 with temperature of 103.5F, patient subsequently given Tamiflu for which he completed 3 doses and given Levaquin for which he completed 2 doses, was then having chest pain for 3 episodes before coming to emergency room. Patient reports last night having chest pain from 6 PM that lasted until 7:30 PM. Episode of chest pain before sleep. A third episode of chest pain around 3 AM . Patient was found to have labs significant for POC troponin of 19.98 with subsequent POC troponin of 27.8. D dimer elevated but CTA did not find evidence of a centralpulmonary embolism. CTA noted pulmonary nodules but no pneumonia. In the ED patient given Ketorolac and aspirin 324 mg. Patient seen by hospitalist with vitals of HR 83 bpm, blood pressure 110/74, and 98% saturation on room air. Patient has been afebrile in ER. Patient denies chest pain since being in the ER. Reports that his chest pain is from middle of the chest. No radiation of pain elsewhere. No reproducible tenderness on chest palpation. Patient reports that when he has chest pain, it has been worse when lying flat and feels better with standing upright and taking shows. Past Medical/Surgical History Medical Problems: (1) Ankle pain Status: Resolved (2) Ankle pain Status: Resolved (3) Effusion of right elbow Status: Resolved (4) Fall Status: Resolved (5) Finger laceration involving tendon Status: Resolved (6) Head injury Status: Resolved (7) Neck pain Status: Resolved (8) Right elbow pain Status: Resolved (9) Shoulder pain, right Status: Resolved Family History great grandparents had heart attack Social History Smoking Status: Never Smoker Alcohol Use: occasionally Marital Status: Occupational Status: employed Immunizations History of Tetanus Vaccine?: Yes History of Pneumococcal: No History of Hepatitis B Vaccine: Yes Multi-Drug Resistant Organisms History of MDRO: No Allergies Coded Allergies: Morphine (Unverified Allergy, Unknown, INTOLERANCE, 08/15/17) Home Medications Scheduled Levofloxacin (Levaquin), 500 MG PO DAILY Scheduled PRN Acetaminophen (Tylenol), 1,000 MG PO DIRECTED PRN for Pain or Fever Benzonatate (Tessalon Perles), 100 MG PO Q6 PRN for Cough Ibuprofen (Motrin), 200-600 MG PO DIRECTED PRN for Pain or Fever Review of Systems Constitutional: + fever Eyes: No worsening of vision, No eye pain, No redness, No discharge, No diplopia, No problem reported ENT: No hearing loss, No unusual epistaxis, No nasal symptoms, No sore throat, No tinnitus, No dental problems, No trouble swallowing, No problem reported Respiratory: + cough, No shortness of breath Cardiovascular: + chest pain, No edema, No palpitations Abdomen: No pain, No nausea, No vomiting, No diarrhea, No constipation, No GI bleeding, No problem reported Musculoskeletal: No joint pain, No muscle pain, No swelling, No calf pain, No problem reported Genitourinary - Male: No hematuria, No dysuria, No urinary frequency, No urinary urgency, No urinary hesitancy, No urinary retention, No urinary incontinence, No penile discharge, No lesions, No impotence, No problem reported Neurologic: No memory loss, No paralysis, No weakness, No numbness/tingling, No vertigo, No balance problems, No problem reported Psychiatric: No depression symptoms, No anhedonism, No anxiety, No insomnia, No substance abuse, No problem reported Endocrine: No fatigue, No excessive thirst, No excessive urination, No problem reported Hematologic / Lymphatic: No abnormal bleeding/bruising, No clotting problems, No swollen lymph nodes, No night sweats, No problem reported Physical Exam Vital Signs Date Time Temp Pulse Resp B/P (MAP) Pulse Ox O2 Delivery O2 Flow Rate FiO2 08/15/17 07:36 87 20 98 08/15/17 07:31 115/68 08/15/17 07:06 92 17 100 08/15/17 07:01 139/78 08/15/17 06:36 89 15 100 08/15/17 06:31 87 21 125/78 99 08/15/17 06:01 87 21 120/83 97 08/15/17 05:31 88 20 141/90 95 08/15/17 05:18 92 22 141/97 97 08/15/17 05:04 84 08/15/17 05:00 97 Room Air 08/15/17 04:51 36.5 83 18 150/101 99 Room Air General Appearance: no apparent distress Head: normocephalic, atraumatic Eyes: normal inspection, EOMI ENT: normal ENT inspection, hearing grossly normal, pharynx normal Neck: supple, no JVD, trachea midline Respiratory/Chest: chest non-tender, lungs clear, normal breath sounds, no respiratory distress, no accessory muscle use Cardiovascular: regular rate, rhythm, no edema, no JVD Abdomen/GI: normal bowel sounds, non tender, soft Back: normal inspection, no CVA tenderness, no muscle spasm, normal range of motion Extremities/Musculoskelatal: no calf tenderness, normal capillary refill, no pedal edema, normal range of motion, + pertinent finding (right hand in supports due to history of hand surgery) 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, no motor/sensory deficits, alert, oriented x 3 Skin: normal color, warm/dry Diagnostics Laboratory Results Results Past 24 Hours Test 08/15/17 05:00 08/15/17 05:34 08/15/17 06:43 08/15/17 08:03 Range/Units White Blood Count 13.25 4.8-10.8 K/uL Red Blood Count 4.79 4.7-6.1 M/uL Hemoglobin 15.0 14.0-18.0 g/dL Hematocrit 43.0 42-52 % Mean Corpuscular Volume 89.8 80-100 fL Mean Corpuscular Hemoglobin 31.3 25-34 pg Mean Corpuscular Hemoglobin Concent 34.9 32-36 g/dl Platelet Count 275 130-400 K/uL Mean Platelet Volume 10.0 7.4-10.4 fL Neutrophils (%) (Auto) 80.2 % Lymphocytes (%) (Auto) 8.8 % Monocytes (%) (Auto) 9.6 % Eosinophils (%) (Auto) 0.8 % Basophils (%) (Auto) 0.1 % Neutrophils # (Auto) 10.63 1.4-6.5 K/uL Lymphocytes # (Auto) 1.16 1.2-3.4 K/uL Monocytes # (Auto) 1.27 0.11-0.59 K/uL Eosinophils # (Auto) 0.11 0-0.5 K/uL Basophils # (Auto) 0.01 0-0.2 K/uL RDW Standard Deviation 41.3 36.4-46.3 fL RDW Coefficient of Variation 12.6 11.5-14.5 % Immature Granulocyte % (Auto) 0.5 % Immature Granulocyte # (Auto) 0.07 0.00-0.02 K/uL Sodium Level 135 136-145 mmol/L Potassium Level 3.6 3.5-5.1 mmol/L Chloride Level 103 98-107 mmol/L Carbon Dioxide Level 26 21-32 mmol/L Anion Gap 6.0 3-11 mmol/L Blood Urea Nitrogen 12 7-18 mg/dl Creatinine 1.08 0.60-1.40 mg/dl Est Creatinine Clear Calc Drug Dose 118.4 ml/min Estimated GFR () 104.7 Estimated GFR (Non- 90.3 BUN/Creatinine Ratio 11.3 10-20 Random Glucose 128 70-99 mg/dl Calcium Level 8.9 8.5-10.1 mg/dl Total Bilirubin 0.6 0.2-1 mg/dl Aspartate Amino Transf (AST/SGOT) 99 15-37 U/L Alanine Aminotransferase (ALT/SGPT) 42 12-78 U/L Alkaline Phosphatase 101 45-117 U/L Total Protein 8.3 6.4-8.2 gm/dl Albumin 3.4 3.4-5.0 gm/dl Globulin 4.9 2.5-4.0 gm/dl Albumin/Globulin Ratio 0.7 0.9-2 Lipase 72 73-393 U/L Bedside D-Dimer > 450 0-450 ng/mlFEU Bedside Lactic Acid Venous 1.27 0.90-1.70 mmol/L Bedside Troponin I 19.980 0-0.045 ng/ml Troponin I 27.800 0-0.045 ng/ml Creatine Kinase MB Ratio 0-3.0 Test 08/15/17 08:27 Range/Units Microbiology Results 08/15/17 Blood Culture, Received Pending 08/15/17 Blood Culture, Received Pending Diagnostic Radiology CTA chest 1. No evidence of a central pulmonary embolus allowing for the timing of the contrast bolus and respiration. No acute intrathoracic pathology. 2. Two solid pulmonary nodules, one in the right lower lobe measuring 5 mm and one in the left lower lobe measuring 7 mm. EKG 91 bpm Sinus rhythm with Premature ventricular complexes or Fusion complexes Otherwise normal ECG Impression Assessment and Plan Elevated troponins and chest pain labs significant for POC troponin of 19.98 with subsequent POC troponin of 27.8. in the ED patient given Ketorolac and aspirin 324 mg. standard troponin ordered with CK, CK MB, lipid panel, hBA1c, TSH echocardiogram ordered cardiology service consulted - presentation may be myocarditis but further workup up pending Respiratory - breathing on room air without desaturation patient had completed Tamiflu as outpatient Flu swab ordered D dimer elevated but CTA did not find evidence of a central pulmonary embolus . CTA noted pulmonary nodules but no pneumonia would not start home dosed Levaquin at this time given no evidence for pneumonia CTA did show Two solid pulmonary nodules, one in the right lower lobe measuring 5 mm and one in the left lower lobe measuring 7 mm, will monitor for nowjessica outpatient follow up of lung nodules Monitor for fevers Acetaminophen prn for pain and fevers Disposition: admission to telemetry, pending cardiology service evaluation VTE Prophylaxis VTE Risk Assessment Done? Y/N: Yes Risk Level: Moderate
[2017-08-15 09:03] LABS: BUN/CREATININE RATIO 11.2 (10-20); CALCIUM 8.4 mg/dl (8.5-10.1); CREATININE 0.93 mg/dl (0.60-1.40); POTASSIUM 3.8 mmol/L (3.5-5.1)
[2017-08-15 09:19] LABS: ALB/GLOB RATIO 0.7 (0.9-2); CKMB/CK RATIO 8.8 (0-3.0); THYROID STIMULATING HORMONE 4.23 uIu/ml (0.300-4.500)
[2017-08-15 09:33] LABS: ESTIMATED AVERAGE GLUCOSE 100 mg/dl; HA1C FLAG Normal (Normal)
[2017-08-15] MEDS: SODIUM CHLORIDE 0.9% 1000ML 1,000 ML IV SCH ×2 (11:02→20:45)
[2017-08-15] MEDS: METOPROLOL TARTRATE 25 MG TAB PO SCH ×2 (11:10→18:19)
[2017-08-15 11:46] LABS: BENZODIAZEPINE, URINE NEG (NEG); COCAINE,URINE NEG (NEG); PHENCYCLIDINE, URINE NEG (NEG)
--- NOTE | 2017-08-15 11:51 | ECHOCARDIOGRAM REPORT ---
*NOTICE TO RECEIVING [employer] This information is strictly Confidential and protected under [place] law. [place] law prohibits you from making any further disclosure of this information unless further disclosure is expressly permitted by the written consent of the person to whom it pertains or is authorized by law. A general authorization for the release of medical or other information is not sufficient for this purpose. Hospital accepts no responsibility if the information is made available to any other person, INCLUDING THE PATIENT. Interpretation Summary * Name: AGUSTIN CHRISTIANSON Study Date: 08/15/2017 08:56 AM BP: 115/68 mmHg * Patient Location: [facility] HR: 87 * : 1985 (M/d/yyyy) Gender: Male Height: 71 in * Age: 31 yrs Ethnicity: CA Weight: 221 lb * Ordering Physician: Esequiel Jacome MD, [facility] * Performed By: Kami Taylor RDCS * * Reason For Study: MYOCARDITIS * BSA: 2.2 m2 * -- Conclusions -- * Normal LV chamber size with mild concentric LVH. * Low normal LV systolic function, EF 50-55%. * No segmental left ventricular wall motion abnormalities are noted. * Grade I diastolic dysfunction. * The right ventricular cavity size is normal (basal dimension <4.2 cm in right ventricular apical 4-chamber view). The right ventricular systolic function is normal as assessed by tricuspid annular plane systolic excursion (TAPSE) (normal >1.5 cm). * No significant valvular pathology. * No valvular lesions identified within the scope of this imaging modality. * No significant pericardial effusions or pericardial thickening. Procedure Details * A complete two-dimensional transthoracic echocardiogram was performed (2D, M-mode, Doppler and color flow Doppler). Left Ventricle * The left ventricle is normal in size. * There is normal left ventricular wall thickness. * Ejection Fraction = 50-55%. * Left ventricular systolic function is low normal. * No segmental left ventricular wall motion abnormalities are noted. * The left ventricular wall motion is normal. Right Ventricle * The right ventricular cavity size is normal (basal dimension <4.2 cm in right ventricular apical 4-chamber view). * The right ventricular systolic function is normal as assessed by tricuspid annular plane systolic excursion (TAPSE) (normal >1.5 cm). Atria * The left atrial size is normal. * Right atrial size is normal. * No ASD detected; PFO is not assessed. Mitral Valve * The mitral valve is normal in structure and function. Tricuspid Valve * The tricuspid valve is normal in structure and function. Aortic Valve * The aortic valve is normal in structure and function. Pulmonic Valve * The pulmonary valve is not well seen, but the Doppler examination is normal without significant regurgitation or stenosis. Great Vessels * The aortic root and proximal ascending aorta are normal sized. Pericardium/Pleural * There is no pericardial effusion. Left Ventricular Diastolic Function * Grade I diastolic dysfunction, (abnormal relaxation pattern). MMode 2D Measurements and Calculations IVSd 1.4 cm IVSs 1.6 cm LVIDd 4.4 cm LVIDs 3.1 cm LVPWd 1.3 cm LVPWs 1.9 cm IVS/LVPW 1.1 FS 30.3 % EDV(Teich) 87.9 ml ESV(Teich) 37.0 ml EF(Teich) 57.9 % EDV(cubed) 85.5 ml ESV(cubed) 28.9 ml EF(cubed) 66.2 % % IVS thick 8.7 % % LVPW thick 48.6 % LV mass(C)d 231.8 grams LV mass(C)dI 105.4 grams/m\S\2 LV mass(C)s 210.6 grams LV mass(C)sI 95.7 grams/m\S\2 SV(Teich) 50.9 ml SI(Teich) 23.1 ml/m\S\2 SV(cubed) 56.5 ml SI(cubed) 25.7 ml/m\S\2 ACS 2.0 cm LA dimension 3.2 cm asc Aorta Diam 2.3 cm LVOT diam 2.1 cm LVOT area 3.4 cm\S\2 LVAd ap4 37.2 cm\S\2 LVLd ap4 9.4 cm EDV(MOD-sp4) 117.8 ml EDV(sp4-el) 124.4 ml LVAs ap4 21.0 cm\S\2 LVLs ap4 7.6 cm ESV(MOD-sp4) 51.2 ml ESV(sp4-el) 49.1 ml EF(MOD-sp4) 56.5 % EF(sp4-el) 60.5 % LVAd ap2 36.3 cm\S\2 LVLd ap2 9.4 cm EDV(MOD-sp2) 114.5 ml EDV(sp2-el) 119.3 ml LVAs ap2 21.5 cm\S\2 LVLs ap2 7.6 cm ESV(MOD-sp2) 49.5 ml ESV(sp2-el) 51.6 ml EF(MOD-sp2) 56.8 % EF(sp2-el) 56.8 % LVLd %diff -0.58 % EDV(MOD-bp) 116.0 ml LVLs %diff -0.43 % ESV(MOD-bp) 49.6 ml EF(MOD-bp) 57.2 % SV(MOD-sp4) 66.6 ml SI(MOD-sp4) 30.3 ml/m\S\2 SV(MOD-sp2) 65.0 ml SI(MOD-sp2) 29.5 ml/m\S\2 SV(MOD-bp) 66.4 ml SI(MOD-bp) 30.2 ml/m\S\2 SV(sp4-el) 75.3 ml SI(sp4-el) 34.2 ml/m\S\2 SV(sp2-el) 67.7 ml SI(sp2-el) 30.8 ml/m\S\2 Doppler Measurements and Calculations MV E max angel 50.8 cm/sec MV A max angel 58.9 cm/sec MV E/A 0.86 MV dec time 0.18 sec Ao V2 max 106.4 cm/sec Ao max PG 4.5 mmHg Ao max PG (full) 1.8 mmHg BEVERLY(V,A) 2.7 cm\S\2 BEVERLY(V,D) 2.7 cm\S\2 LV V1 max PG 2.8 mmHg LV V1 max 83.2 cm/sec PA V2 max 68.6 cm/sec PA max PG 1.9 mmHg
[2017-08-15 12:00] VITALS: BP 155/80; PULSE 91; TEMP 36.8; O2SAT 98; O2SAT 99
[2017-08-15] MEDS ORDERED: POTASSIUM CHLORIDE 10 MEQ TABCR PO ONE (12:00)
--- NOTE | 2017-08-15 12:36 | CARDIOLOGY CONSULTATION ---
DATE OF CONSULTATION: 08/15/2017 CONSULTATION REQUESTED BY: Dr. Argueta. REASON FOR CONSULTATION: Chest pain with elevated troponin. HISTORY OF PRESENT ILLNESS: Mr. Maddox is a very pleasant and normally very healthy 31-year-old gentleman, who presented to [facility] early in the a.m. of 08/15/2017 with a complaint of chest pain. The patient states that approximately 2 weeks ago, he injured his finger in a log splitting accident and underwent surgery with [facility]. He did well and recovering from surgery; however, few days later, he developed flu-like symptoms and was seen by his primary care physician, Dr. Zaragoza, who treated him for possible influenza and at the same time, acute sinusitis with Tamiflu and Levaquin. His influenza test came back negative and the Tamiflu stopped, but he continued with Levaquin. Ever since then he started to have waxing and waning fevers and myalgias, he states that he had fevers running into the 104s at home and he had been taking Tylenol for it. He states that he is not quite sure if the medicines helped much. It is just something that he has been dealing with. Luckily though, the hand did not seem to be infected at all. He denied any irritation, erythema, red streaks or pain. He states the pain has actually been lessening ever since the surgery. Then, late in the p.m. of 08/14/2017, he was sitting on the couch, watching television when he suddenly developed chest pain. He describes a sharp, stabbing sensation in the center of his chest that radiated up slightly across the precordium. He states it was sharp at first, ranking it at 7/10 and then became dull and achy and it went down to 4/10 after a few minutes. He denied any associated symptoms with it. Specifically, he denied any associated shortness of breath, nausea, palpitations, lightheadedness, dizziness, or syncope. He states he is not quite sure if he was diaphoretic with it since he has been having fevers off and on all throughout. This episode lasted approximately an hour and a half and then resolved for 2 hours. He then had another episode later on the evening, which was exactly similar, but the symptoms persisted. He became concerned and came into the Emergency Department. In the Emergency Department, his EKG was unremarkable; however, initial troponins were 28. He was given Toradol for the pain and his pain completely resolved. He was then admitted to telemetry. Currently, the patient is pain free at rest. He states he still feels a little feverish, but overall is feeling much better with no recurrences of the chest discomfort. He also denies any previous similar episodes in the past. Of note, the patient's [id number] recently was diagnosed with viral myocarditis with slight reduction of his LV systolic function according to the patient's and was treated as an outpatient. Otherwise, the patient has not spent any time in the champagne and denies any tick bites. PAST SURGICAL HISTORY: 1. Recent finger repair after trauma. 2. Hypospadias repair as an . MEDICAL ILLNESSES: Denies. FAMILY HISTORY: Denies any premature coronary artery disease or sudden cardiac . SOCIAL HISTORY: Denies any tobacco. Drinks very rare alcohol. Denies any recreational drug use. He is and lives at home with his . He has 3-year-old child and his is also . He is currently employed as a gayathri. REVIEW OF SYSTEMS: As per HPI. All other review of systems reviewed and negative at this time. ALLERGIES: No known drug allergies. MEDICATIONS AN OUTPATIENT: 1. Levaquin 750 mg daily for 10 days. 2. Oxycodone as needed after hand surgery. PHYSICAL EXAMINATION: VITAL SIGNS: Temperature 36.5, pulse 85, respiratory rate 12, and blood pressure 99/60. GENERAL: Awake, alert, and oriented x3, no acute distress. HEENT: Normocephalic and atraumatic. Pupils equal, round, and reactive to light and accommodation. Extraocular muscles intact. Anicteric sclerae. Moist mucous membranes. NECK: No JVD and no bruit. CARDIOVASCULAR: Regular. No S4. Normal S1 and S2. No S3. No murmurs, rubs or gallops. PULMONARY: Clear to auscultation bilaterally. No rales, rhonchi, or wheezing. ABDOMEN: Bowel sounds x4. Soft. No rebound, guarding, or tenderness. No organomegaly. EXTREMITIES: No clubbing, cyanosis or edema. Right index finger is bandaged. +2 pedal pulses bilaterally. SKIN: Warm and dry. TEST RESULTS: A 12-lead EKG performed in the Emergency Department independently reviewed at this time shows sinus rhythm with occasional PACs at 91 beats per minute, essentially normal study. No signs of active ischemia. Incomplete right bundle branch block. Follow up study approximately 1 hour later showed no ischemic changes. LABORATORY STUDIES OF SIGNIFICANCE: Initial point of care troponin of 20. Laboratory draw troponin of 28 followed by 25. CPK of 1400. Sodium 136, potassium 3.8, BUN 11, and creatinine 0.9. White count 13.2, hemoglobin 15, and platelet count 275. A 2D echocardiogram showed low normal LV systolic function with possibly borderline reduced LV systolic function, EF 50%-55% with no regional wall motion abnormalities, no significant valvular pathology, no signs of endocarditis or valvular lesions consistent with endocarditis within the scope of the imaging modality. IMPRESSION: Likely myocarditis. RECOMMENDATIONS: It was my pleasure to see Mr. Maddox in consultation today. Given the patient's presentation, his recent sick contacts who suffered from myocarditis as well and the fact that his EKG is normal and that he is now pain free after receiving NSAIDs, I believe his presentation is more consistent with a myocarditis pattern than acute coronary syndrome. So, the pathophysiology of which were discussed with the patient and his in great detail. They were counseled at this point given the fact he is pain free and his LV systolic function is not significantly reduced. Though, we will monitor him on telemetry for now to evaluate for any possible arrhythmias. We will plan on repeating a limited echocardiogram in 24 hours to follow his LV systolic function and start him on low dose beta blockade as well as normal saline. His potassium will also be supplemented and further recommendations will be made pending his clinical progression. Both the patient and his were counseled that should he have any significant clinical downturn or any significant reduction in his LV systolic function, then possible transfer to a tertiary care center for further care may be necessary, but again we will follow along for now. They were also counseled on the risks of possible arrhythmias, worsening cardiac function and possible , but again we will follow him for now.
[2017-08-15] MEDS ORDERED: INFLUENZA ADMINISTRATION CHARGE ONE (13:00)
[2017-08-15] MEDS ORDERED: INFLUENZA VIRUS QUAD VACCINE 0.5 ML SYR IM. ONE (13:00)
[2017-08-15 14:00] LABS: INFLUENZA A PCR Neg for Influ A (NEG); INFLUENZA B PCR Neg for Influ B (NEG)
[2017-08-15] MEDS: IBUPROFEN 600 MG TAB PO SCH ×2 (14:19→20:46)
[2017-08-15] MEDS ORDERED: HYDROmorphone INJ 1 MG/ML SYR IV STA (15:23)
[2017-08-15 15:43] VITALS: BP 147/98; PULSE 71; TEMP 36.9; O2SAT 97
[2017-08-15] MEDS ORDERED: COLCHICINE 0.6 MG TAB PO ONE (16:54)
[2017-08-15] MEDS ORDERED: OXYCODONE/ACETAMINOPHEN 5-325 TAB PO PRN (17:00)
[2017-08-15 19:35] VITALS: BP 151/60; PULSE 88; TEMP 36.7; O2SAT 96
[2017-08-15] MEDS: COLCHICINE 0.6 MG TAB PO SCH (20:46)
[2017-08-15 23:30] VITALS: BP 96/61; PULSE 79; TEMP 36.9; O2SAT 98
[2017-08-16] VITALS (10 sets, daily range): BP systolic 105–131; BP diastolic 69–80; PULSE 73–82; TEMP 36.5–37; O2SAT 97–99
[2017-08-16] MEDS ORDERED: VANCOMYCIN INJ 0 MG in SODIUM CHLORIDE 0.9% 250ML 250 ML IV STA (05:35)
[2017-08-16] MEDS ORDERED: VANCOMYCIN CONSULT ACTIVE PRN (05:45)
[2017-08-16] MEDS ORDERED: VANCOMYCIN INJ 2,500 MG in SODIUM CHLORIDE 0.9% 500ML 500 ML IV SCH (06:00)
[2017-08-16] MEDS: METOPROLOL TARTRATE 25 MG TAB PO SCH ×2 (06:09)
[2017-08-16] MEDS: SODIUM CHLORIDE 0.9% 1000ML 1,000 ML IV SCH (06:51)
[2017-08-16 07:01] LABS: BASO % 0.4 %; BASO ABS # 0.02 K/uL (0-0.2); COMPLETE YES; EOS % 3.5 %; HEMATOCRIT 37.6 % (42-52); IG% 1.2 %; LYMPH % 21.9 %; LYMPH ABS # 1.13 K/uL (1.2-3.4); MEAN CELL VOLUME 91.3 fL (80-100); MEAN CORPUSCULAR HEMOGLOBIN 30.8 pg (25-34); MEAN CORPUSCULAR HGB CONC 33.8 g/dl (32-36); MEAN PLATELET VOLUME 9.8 fL (7.4-10.4); MONO % 16.9 %; NEUT % 56.1 %; PLATELET COUNT 251 K/uL (130-400); RED BLOOD COUNT 4.12 M/uL (4.7-6.1); WHITE BLOOD COUNT 5.15 K/uL (4.8-10.8)
[2017-08-16 07:25] LABS: BUN/CREATININE RATIO 13.6 (10-20); CALCIUM 8.2 mg/dl (8.5-10.1); CREATININE 0.75 mg/dl (0.60-1.40); POTASSIUM 4.1 mmol/L (3.5-5.1)
[2017-08-16 07:32] LABS: ALB/GLOB RATIO 0.7 (0.9-2)
[2017-08-16] MEDS: IBUPROFEN 600 MG TAB PO SCH ×3 (08:11→23:31)
[2017-08-16] MEDS: COLCHICINE 0.6 MG TAB PO SCH ×2 (08:11→23:31)
--- NOTE | 2017-08-16 08:36 | ECHOCARDIOGRAM REPORT ---
*NOTICE TO RECEIVING [employer]ENCY This information is strictly Confidential and protected under [place] law. [place] law prohibits you from making any further disclosure of this information unless further disclosure is expressly permitted by the written consent of the person to whom it pertains or is authorized by law. A general authorization for the release of medical or other information is not sufficient for this purpose. Hospital accepts no responsibility if the information is made available to any other person, INCLUDING THE PATIENT. Interpretation Summary * Name: AGUSTIN CHRISTIANSON Study Date: 08/16/2017 07:08 AM BP: 105/69 mmHg * Patient Location: C.2T\S\E217\S\1 HR: 78 * : 1985 (M/d/yyyy) Gender: Male Height: 71 in * Age: 31 yrs Ethnicity: CA Weight: 221 lb * Ordering Physician: Rafael Carballo * Referring Physician: Self, Referred * Performed By: Ofe Gray RDCS * * Reason For Study: LIMITED ECHO FOR WALL MOTION * BSA: 2.2 m2 * -- Conclusions -- * No change compared to study of 08/15/17. * Normal LV chamber size with mild concentric LVH. * Low normal LV systolic function with possible borderline global hypokinesis, EF 50-55%. Procedure Details * Limited views were obtained. MMode 2D Measurements and Calculations IVSd 1.2 cm IVSs 1.6 cm LVIDd 4.1 cm LVIDs 3.1 cm LVPWd 1.4 cm LVPWs 1.9 cm IVS/LVPW 0.83 FS 24.5 % EDV(Teich) 73.7 ml ESV(Teich) 37.5 ml EF(Teich) 49.1 % EDV(cubed) 68.3 ml ESV(cubed) 29.4 ml EF(cubed) 56.9 % % IVS thick 36.9 % % LVPW thick 36.8 % LV mass(C)d 187.1 grams LV mass(C)dI 85.0 grams/m\S\2 LV mass(C)s 212.9 grams LV mass(C)sI 96.7 grams/m\S\2 SV(Teich) 36.1 ml SI(Teich) 16.4 ml/m\S\2 SV(cubed) 38.9 ml SI(cubed) 17.7 ml/m\S\2 LVAd ap4 35.5 cm\S\2 LVLd ap4 9.6 cm EDV(MOD-sp4) 106.9 ml EDV(sp4-el) 111.2 ml LVAs ap4 22.7 cm\S\2 LVLs ap4 8.2 cm ESV(MOD-sp4) 54.3 ml ESV(sp4-el) 53.1 ml EF(MOD-sp4) 49.2 % EF(sp4-el) 52.3 % LVAd ap2 26.7 cm\S\2 LVLd ap2 9.6 cm EDV(MOD-sp2) 61.0 ml EDV(sp2-el) 63.4 ml LVAs ap2 16.8 cm\S\2 LVLs ap2 7.9 cm ESV(MOD-sp2) 30.9 ml ESV(sp2-el) 30.4 ml EF(MOD-sp2) 49.4 % EF(sp2-el) 52.0 % LVLd %diff -0.56 % EDV(MOD-bp) 81.1 ml LVLs %diff -4.25 % ESV(MOD-bp) 41.7 ml EF(MOD-bp) 48.6 % SV(MOD-sp4) 52.5 ml SI(MOD-sp4) 23.9 ml/m\S\2 SV(MOD-sp2) 30.1 ml SI(MOD-sp2) 13.7 ml/m\S\2 SV(MOD-bp) 39.4 ml SI(MOD-bp) 17.9 ml/m\S\2 SV(sp4-el) 58.1 ml SI(sp4-el) 26.4 ml/m\S\2 SV(sp2-el) 33.0 ml SI(sp2-el) 15.0 ml/m\S\2
[2017-08-16] MEDS ORDERED: METOPROLOL TARTRATE 25 MG TAB PO ONE (09:39)
--- NOTE | 2017-08-16 10:35 | Cardiology Follow-Up ---
Subjective Subjective Date of Service: Aug 16, 2017. Pt evaluation today including: conversation w/ patient, physical exam, chart review, lab review, review of studies, review of inpatient medication list Additional Details: Pt seen and examined with at bedside, states that he's now pain free. Did have some chest pain last PM, I added colchicine and no pain since. Denies sob, palpitations, lightheadedness or dizziness. Tele reviewed: sinus rhythm with a 6 beat run of v-tach, no sustained arrhythmias Problem List Medical Problems: (1) Chest pain Status: Acute (2) Elevated troponin Status: Acute (3) Flu-like symptoms Status: Acute (4) Open fracture of finger of right hand Status: Acute Review of Systems Respiratory: No see HPI, No cough, No sputum, No wheezing, No shortness of breath, No dyspnea on exertion, No dyspnea at rest, No hemoptysis, No problem reported Cardiac: + chest pain, No see HPI, No orthopnea, No PND, No edema, No claudication, No palpitations, No problem reported Objective Vital Signs Last Vital Signs Documentation Date Time Temp Pulse Resp B/P (MAP) Pulse Ox O2 Delivery O2 Flow Rate FiO2 08/16/17 08:00 99 Room Air 08/16/17 07:33 37.0 76 20 106/71 (83) Physical Exam: General Appearance: WD/WN, no apparent distress Eyes: bilateral eyes normal inspection, bilateral eyes PERRL, bilateral eyes EOMI ENT: normal ENT inspection, hearing grossly normal, pharynx normal Neck: supple, no adenopathy, thyroid normal, no JVD, no carotid bruits, trachea midline Respiratory/Chest: chest non-tender, lungs clear, normal breath sounds, no respiratory distress, no accessory muscle use Cardiovascular: regular rate, rhythm, no edema, no JVD, no murmur, + gallop/S4 (questionable) Abdomen: normal bowel sounds, non tender, soft, no organomegaly, no pulsatile mass Extremities: normal inspection, no pedal edema, no calf tenderness, + pertinent finding (right index finger bandaged) 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 myopericarditis initial presentation with sharp chest pain, elevated troponin and normal EKG echo revealed low normal LV function without regional wall motion abnormality and no significant pericardial effusion treated pain as pericardial pain and now resolved now with slight nonspecific EKG changes, likely sequelae of myopericarditis, no overt ischemia troponin trending down no significant arrhythmias on monitor really no role for MRI at this point with normal function, would not change treatment plan to be on the safe side would send home with a 1 week MCOT monitor to follow for ventricular arrhythmias, my office will place d/c home on ibuprofen 600mg TID with food and colchicine 0.6mg bid for 3 months follow with me as outpatient in 2-4 weeks return to ER with symptoms ok to d/c to home from cardiac standpoint
[2017-08-16] MEDS ORDERED: METOPROLOL TARTRATE 25 MG TAB PO SCH ×2 (12:00→21:00)
--- NOTE | 2017-08-16 12:35 | Progress Note ---
Internal Med Progress Note Date of Service: Aug 16, 2017. Provider Documentation: SUBJECTIVE: Patient reports chest pain symptoms have been resolving since yesterday. OBJECTIVE: Vital Signs-as noted below Exam: General Appearance: WD/WN, no apparent distress Eyes: bilateral eyes normal inspection, bilateral eyes EOMI ENT: normal ENT inspection, hearing grossly normal, pharynx normal Neck: supple, no JVD, trachea midline Respiratory/Chest: chest non-tender, lungs clear, normal breath sounds, no respiratory distress, no accessory muscle use Cardiovascular: regular rate, rhythm, no edema Abdomen: normal bowel sounds, non tender, soft, no organomegaly, no pulsatile mass Extremities: normal inspection, no pedal edema, no calf tenderness, right index finger bandaged Neurologic/Psychiatric: no motor/sensory deficits, alert, normal mood/affect, oriented x 3 Skin: normal color, warm/dry, no rash Lymphatic: no adenopathy ASSESSMENT & PLAN: Cardiology note on 08/16/17 and diagnosis of myopericarditis "initial presentation with sharp chest pain, elevated troponin and normal EKG echo revealed low normal LV function without regional wall motion abnormality and no significant pericardial effusion treated pain as pericardial pain and now resolved now with slight nonspecific EKG changes, likely sequelae of myopericarditis, no overt ischemia troponin trending down no significant arrhythmias on monitor really no role for MRI at this point with normal function, would not change treatment plan to be on the safe side would send home with a 1 week MCOT monitor to follow for ventricular arrhythmias, my office will place d/c home on ibuprofen 600mg TID with food and colchicine 0.6mg bid for 3 months follow with me as outpatient in 2-4 weeks return to ER with symptoms" However patient has 1 positive blood culture for gram positive cocci out of the 2 blood cultures drawn on 08/15/17 on admission. Patient was started on Vancomycin. Monitor renal function while on Vancomycin and Vancomycin Trough levels if needed Disposition: Patient to remain in hospital to received IV antibiotics until speciation of gram positive cocci. It is unclear whether this a true infection or contaminant. Repeat blood cultures drawn on 08/16/17 Other issues CTA showed Two solid pulmonary nodules, one in the right lower lobe measuring 5 mm and one in the left lower lobe measuring 7 mm, will monitor for now, jessica outpatient follow up of lung nodules DVT prophylaxis Vital Signs: Date Time Temp Pulse Resp B/P (MAP) Pulse Ox O2 Delivery O2 Flow Rate FiO2 08/16/17 12:00 99 Room Air 08/16/17 11:17 36.9 81 20 123/80 (94) 97 Room Air 08/16/17 08:00 99 Room Air 08/16/17 07:33 37.0 76 20 106/71 (83) 97 Room Air 08/16/17 06:09 105/69 (81) 08/16/17 04:00 Room Air 08/16/17 03:33 36.7 78 18 107/72 (84) 98 Room Air 08/16/17 00:01 Room Air 08/15/17 23:30 36.9 79 18 96/61 (73) 98 Room Air 08/15/17 20:00 Room Air 08/15/17 19:35 36.7 88 18 151/60 (90) 96 08/15/17 16:00 Room Air 08/15/17 15:43 36.9 71 18 147/98 (114) 97 Room Air Lab Results: Results Past 24 Hours Test 08/15/17 15:44 08/15/17 16:08 08/15/17 22:00 08/16/17 06:47 Range/Units Troponin I 17.300 35.000 19.300 0-0.045 ng/ml Bedside Glucose 96 70-99 mg/dl White Blood Count 5.15 4.8-10.8 K/uL Red Blood Count 4.12 4.7-6.1 M/uL Hemoglobin 12.7 14.0-18.0 g/dL Hematocrit 37.6 42-52 % Mean Corpuscular Volume 91.3 80-100 fL Mean Corpuscular Hemoglobin 30.8 25-34 pg Mean Corpuscular Hemoglobin Concent 33.8 32-36 g/dl Platelet Count 251 130-400 K/uL Mean Platelet Volume 9.8 7.4-10.4 fL Neutrophils (%) (Auto) 56.1 % Lymphocytes (%) (Auto) 21.9 % Monocytes (%) (Auto) 16.9 % Eosinophils (%) (Auto) 3.5 % Basophils (%) (Auto) 0.4 % Neutrophils # (Auto) 2.89 1.4-6.5 K/uL Lymphocytes # (Auto) 1.13 1.2-3.4 K/uL Monocytes # (Auto) 0.87 0.11-0.59 K/uL Eosinophils # (Auto) 0.18 0-0.5 K/uL Basophils # (Auto) 0.02 0-0.2 K/uL RDW Standard Deviation 43.6 36.4-46.3 fL RDW Coefficient of Variation 13.1 11.5-14.5 % Immature Granulocyte % (Auto) 1.2 % Immature Granulocyte # (Auto) 0.06 0.00-0.02 K/uL Sodium Level 138 136-145 mmol/L Potassium Level 4.1 3.5-5.1 mmol/L Chloride Level 108 98-107 mmol/L Carbon Dioxide Level 25 21-32 mmol/L Anion Gap 5.0 3-11 mmol/L Blood Urea Nitrogen 10 7-18 mg/dl Creatinine 0.75 0.60-1.40 mg/dl Est Creatinine Clear Calc Drug Dose 170.6 ml/min Estimated GFR () 140.7 Estimated GFR (Non- 121.4 BUN/Creatinine Ratio 13.6 10-20 Random Glucose 103 70-99 mg/dl Calcium Level 8.2 8.5-10.1 mg/dl Total Bilirubin 0.4 0.2-1 mg/dl Aspartate Amino Transf (AST/SGOT) 117 15-37 U/L Alanine Aminotransferase (ALT/SGPT) 51 12-78 U/L Alkaline Phosphatase 73 45-117 U/L Total Protein 6.7 6.4-8.2 gm/dl Albumin 2.8 3.4-5.0 gm/dl Globulin 3.9 2.5-4.0 gm/dl Albumin/Globulin Ratio 0.7 0.9-2 Test 08/16/17 09:49 Range/Units Microbiology Results 08/16/17 Blood Culture, Received Pending 08/16/17 Blood Culture, Received Pending
--- NOTE | 2017-08-16 13:11 | Pharmacy Progress Note ---
Pharmacy Abx Initial Consult Date of Service Aug 16, 2017. Pharmacy Dosing Scope Date of Consult: 08/16/17 Consultation requested by: Dr. Koch Pharmacy is consulted to initiate Vancomycin IV dosing therapy, order appropriate labs and adjust drug dose/frequency. Subjective The patient is a 31 year old male admitted on Aug 15, 2017 at 08:35. Objective Height (Feet): 5 Height (Inches): 11.00 Weight (Kilograms): 100.300 Vital Signs (Past 12Hrs) Vital Signs Past 12 Hours Date Time Temp Pulse Resp B/P (MAP) Pulse Ox O2 Delivery O2 Flow Rate FiO2 08/16/17 12:00 99 Room Air 08/16/17 11:17 36.9 81 20 123/80 (94) 97 Room Air 08/16/17 08:00 99 Room Air 08/16/17 07:33 37.0 76 20 106/71 (83) 97 Room Air 08/16/17 06:09 105/69 (81) 08/16/17 04:00 Room Air 08/16/17 03:33 36.7 78 18 107/72 (84) 98 Room Air Lab Results (24Hrs) Item Value Date Time Creatinine 0.75 mg/dl 08/16/17 0647 Est Creatinine Clear Calc Drug Dose 170.6 ml/min 08/16/17 0647 Estimated GFR () 140.7 08/16/17 0647 Estimated GFR (Non- 121.4 08/16/17 0647 Laboratory Tests (24 Hours) Test 08/16/17 06:47 White Blood Count 5.15 K/uL (4.8-10.8) Red Blood Count 4.12 M/uL (4.7-6.1) L Hemoglobin 12.7 g/dL (14.0-18.0) L Hematocrit 37.6 % (42-52) L Mean Corpuscular Volume 91.3 fL (80-100) Mean Corpuscular Hemoglobin 30.8 pg (25-34) Mean Corpuscular Hemoglobin Concent 33.8 g/dl (32-36) Platelet Count 251 K/uL (130-400) Mean Platelet Volume 9.8 fL (7.4-10.4) Neutrophils (%) (Auto) 56.1 % Lymphocytes (%) (Auto) 21.9 % Monocytes (%) (Auto) 16.9 % Eosinophils (%) (Auto) 3.5 % Basophils (%) (Auto) 0.4 % Neutrophils # (Auto) 2.89 K/uL (1.4-6.5) Lymphocytes # (Auto) 1.13 K/uL (1.2-3.4) L Monocytes # (Auto) 0.87 K/uL (0.11-0.59) H Eosinophils # (Auto) 0.18 K/uL (0-0.5) Basophils # (Auto) 0.02 K/uL (0-0.2) Micro Results Date/Time Source Procedure Growth Status 08/16/17 08:26 Blood Blood Culture Pending Received 08/16/17 08:19 Blood Blood Culture Pending Received 08/15/17 06:43 Blood Blood Culture - Preliminary Gram Positive Cocci Resulted 08/15/17 05:00 Blood Blood Culture - Preliminary NO GROWTH TO DATE. Resulted Risk Factors for Resistance * Hospitalization for 48 hours or more within the past 90 days * Antimicrobial use within the last 90 days (keflex 2 weeks completed 08/10/17, tamiflu x 3 doses, levaquin x 2 doses) Assessment & Plan Assessment 31 year old male with PMH of surgery of right hand from traumatic injury and s/ p repair with metal fixations and completed 2 week course of Keflex on Saturday08/10/17, also with 2 and half weeks of flu like symptoms, was found to have fever of 102.1 F on Saturday08/12/17 as per patient, then went to his primary care doctor's office on Saturday08/13/17 with temperature of 103.5F, patient subsequently given Tamiflu for which he completed 3 doses and given Levaquin for which he completed 2 doses, was then having chest pain for 3 episodes before coming to emergency room. Patient to remain in hospital to received IV antibiotics until speciation of gram positive cocci. It is unclear whether this a true infection or contaminant. Repeat blood cultures drawn on 08/16/17 Plan Vancomycin for treatment of Bacteremia Vancomycin IV * Loading dose: 2,500 mg (25 mg/kg) * Maintenance dose: 1,750 mg IV (17.5 mg/kg) every 8 hours * Goal trough level for Bacteremia : 15 to 20 mcg/mL * Trough/Random level ordered for 08/17/17 @4530 Pharmacy will continue to follow and will adjust dose/frequency as necessary. Thank you.
[2017-08-16 14:41] LABS: URINE APPEARANCE CLEAR (CLEAR); URINE BILIRUBIN NEG (NEG); URINE COLOR YELLOW; URINE NITRITE NEG (NEG); URINE SPECIFIC GRAVITY 1.032 (1.000-1.030); UROBILINOGEN NEG (NEG)
[2017-08-16 14:45] LABS: MANUAL MICROSCOPIC REQUIRED? NO; REVIEW REQ? NO
[2017-08-16] MEDS: VANCOMYCIN INJ 1,750 MG in SODIUM CHLORIDE 0.9% 500ML 500 ML IV SCH ×2 (15:48→23:33)
[2017-08-17 04:03] VITALS: BP 118/74; PULSE 62; TEMP 36.7; O2SAT 99
[2017-08-17] MEDS ORDERED: VANCOMYCIN TROUGH ONE (07:30)
[2017-08-17 07:38] VITALS: BP 113/76; PULSE 87; TEMP 36.7; O2SAT 95
[2017-08-17 07:58] LABS: BASO % 0.7 %; BASO ABS # 0.04 K/uL (0-0.2); COMPLETE YES; EOS % 3.1 %; HEMATOCRIT 38.4 % (42-52); IG% 2.3 %; LYMPH % 22.7 %; LYMPH ABS # 1.38 K/uL (1.2-3.4); MEAN CELL VOLUME 91.9 fL (80-100); MEAN CORPUSCULAR HEMOGLOBIN 30.9 pg (25-34); MEAN CORPUSCULAR HGB CONC 33.6 g/dl (32-36); MEAN PLATELET VOLUME 9.6 fL (7.4-10.4); NEUT % 59.2 %; PLATELET COUNT 269 K/uL (130-400); RED BLOOD COUNT 4.18 M/uL (4.7-6.1); WHITE BLOOD COUNT 6.08 K/uL (4.8-10.8)
[2017-08-17 08:34] LABS: BUN/CREATININE RATIO 9.9 (10-20); CALCIUM 8.5 mg/dl (8.5-10.1); CREATININE 0.85 mg/dl (0.60-1.40); POTASSIUM 4.1 mmol/L (3.5-5.1)
[2017-08-17 08:37] LABS: ALB/GLOB RATIO 0.7 (0.9-2)
[2017-08-17] MEDS: COLCHICINE 0.6 MG TAB PO SCH ×2 (08:45→21:10)
[2017-08-17] MEDS: VANCOMYCIN INJ 1,750 MG in SODIUM CHLORIDE 0.9% 500ML 500 ML IV SCH ×3 (08:45→23:14)
[2017-08-17] MEDS: IBUPROFEN 600 MG TAB PO SCH ×3 (08:46→21:10)
[2017-08-17] MEDS: METOPROLOL SUCC 25MG EXT REL TAB PO SCH (08:47)
--- NOTE | 2017-08-17 10:43 | Cardiology Follow-Up ---
Subjective Subjective Date of Service: Aug 17, 2017. Pt evaluation today including: conversation w/ patient, physical exam, chart review, lab review, review of studies, review of inpatient medication list Additional Details: Pt seen and examined, remains without complaint. Anxious to be discharged. Denies fever, chills, chest pain, sob, palpitations, lightheadedness or dizziness. Tele reviewed: sinus rhythm without arrhythmia. Problem List Medical Problems: (1) Chest pain Status: Acute (2) Elevated troponin Status: Acute (3) Flu-like symptoms Status: Acute (4) Open fracture of finger of right hand Status: Acute Review of Systems Respiratory: No see HPI, No cough, No sputum, No wheezing, No shortness of breath, No dyspnea on exertion, No dyspnea at rest, No hemoptysis, No problem reported Cardiac: + chest pain, No see HPI, No orthopnea, No PND, No edema, No claudication, No palpitations, No problem reported Objective Vital Signs Last Vital Signs Documentation Date Time Temp Pulse Resp B/P (MAP) Pulse Ox O2 Delivery O2 Flow Rate FiO2 08/17/17 07:38 36.7 87 18 113/76 (88) 95 Room Air Physical Exam: General Appearance: WD/WN, no apparent distress Eyes: bilateral eyes normal inspection, bilateral eyes PERRL, bilateral eyes EOMI ENT: normal ENT inspection, hearing grossly normal, pharynx normal Neck: supple, no adenopathy, thyroid normal, no JVD, no carotid bruits, trachea midline Respiratory/Chest: chest non-tender, lungs clear, normal breath sounds, no respiratory distress, no accessory muscle use Cardiovascular: regular rate, rhythm, no edema, no JVD, no murmur, + gallop/S4 (questionable) Abdomen: normal bowel sounds, non tender, soft, no organomegaly, no pulsatile mass Extremities: normal inspection, no pedal edema, no calf tenderness, + pertinent finding (right index finger bandaged) 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 myopericarditis initial presentation with sharp chest pain, elevated troponin and normal EKG echo revealed low normal LV function without regional wall motion abnormality and no significant pericardial effusion treated pain as pericardial pain and now resolved now with slight nonspecific EKG changes, likely sequelae of myopericarditis, no overt ischemia troponin trending down no significant arrhythmias on monitor really no role for MRI at this point with normal function, would not change treatment plan to be on the safe side would send home with a 1 week MCOT monitor to follow for ventricular arrhythmias, my office will place d/c home on ibuprofen 600mg TID with food and colchicine 0.6mg bid for 3 months follow with me as outpatient in 2-4 weeks return to ER with symptoms no role for antibiotics from cardiac standpoint 2. blood culture a single bottle with gram positive cocci white count down afebrile high likelihood of contaminant would be reasonable to d/c to home and follow up as outpatient on further culture results at the very least may be prudent to discuss with ID if further inpt management necessary ok to d/c to home from cardiac standpoint
[2017-08-17 11:03] VITALS: BP 109/78; PULSE 77; TEMP 36.9; O2SAT 98
--- NOTE | 2017-08-17 12:53 | Progress Note ---
Internal Med Progress Note Date of Service: Aug 17, 2017. Provider Documentation: SUBJECTIVE: Patient denies chest pain overnight. No significant telemetry events OBJECTIVE: Exam: General Appearance: WD/WN, no apparent distress Eyes: bilateral eyes normal inspection, bilateral eyes EOMI ENT: normal ENT inspection, hearing grossly normal, pharynx normal Neck: supple, no JVD, trachea midline Respiratory/Chest: chest non-tender, lungs clear, normal breath sounds, no respiratory distress, no accessory muscle use Cardiovascular: regular rate, rhythm, no edema Abdomen: normal bowel sounds, non tender, soft, no organomegaly, no pulsatile mass Extremities: normal inspection, no pedal edema, no calf tenderness, right index finger bandaged Neurologic/Psychiatric: no motor/sensory deficits, alert, normal mood/affect, oriented x 3 Skin: normal color, warm/dry, no rash Lymphatic: no adenopathy ASSESSMENT & PLAN: Cardiology note on 08/16/17 and diagnosis of myopericarditis "initial presentation with sharp chest pain, elevated troponin and normal EKG echo revealed low normal LV function without regional wall motion abnormality and no significant pericardial effusion treated pain as pericardial pain and now resolved now with slight nonspecific EKG changes, likely sequelae of myopericarditis, no overt ischemia troponin trending down no significant arrhythmias on monitor really no role for MRI at this point with normal function, would not change treatment plan to be on the safe side would send home with a 1 week MCOT monitor to follow for ventricular arrhythmias, my office will place d/c home on ibuprofen 600mg TID with food and colchicine 0.6mg bid for 3 months follow with me as outpatient in 2-4 weeks return to ER with symptoms" However patient has 1 positive blood culture for gram positive cocci out of the 2 blood cultures drawn on 08/15/17 on admission. Patient was started on Vancomycin. On 08/16/17, patient's positive blood culture from 08/15/17 has now been demonstrated to be gamma hemolytic strep species. Blood cultures from 08/16/17 have not resulted yet Will continue IV Vancomycin for now Disposition: Patient to remain in hospital to received IV antibiotics until speciation of positive blood culture. The preliminary result of gamma hemolytic strep species is of concern because in that group of bacteria, differentials may include Enterococcus faecalis which is associated with high antibiotic resistance. Parenteral treatment for susceptible enterococcal infections in adults includes vancomycin monotherapy, ampicillin monotherapy, or combination of ampicillin with ceftriaxone. Other issues CTA showed Two solid pulmonary nodules, one in the right lower lobe measuring 5 mm and one in the left lower lobe measuring 7 mm, will monitor for now, jessica outpatient follow up of lung nodules DVT prophylaxis Vital Signs: Date Time Temp Pulse Resp B/P (MAP) Pulse Ox O2 Delivery O2 Flow Rate FiO2 08/17/17 12:00 Room Air 08/17/17 11:03 36.9 77 18 109/78 (88) 98 Room Air 08/17/17 08:00 Room Air 08/17/17 07:38 36.7 87 18 113/76 (88) 95 Room Air 08/17/17 04:03 36.7 62 18 118/74 (89) 99 Room Air 08/17/17 04:00 Room Air 08/17/17 00:00 Room Air 08/16/17 23:41 36.5 73 18 120/72 (88) 97 Room Air 08/16/17 20:00 Room Air 08/16/17 19:01 36.5 82 20 131/77 (95) 99 Room Air 08/16/17 16:00 99 Room Air 08/16/17 15:21 36.7 76 20 120/73 (89) 98 Room Air Lab Results: Results Past 24 Hours Test 08/16/17 13:30 08/17/17 07:31 Range/Units Urine Color YELLOW Urine Appearance CLEAR CLEAR Urine pH 5.0 4.5-7.5 Urine Specific [place] 1.032 1.000-1.030 Urine Protein NEG NEG Urine Glucose (UA) NEG NEG Urine Ketones NEG NEG Urine Occult Blood 1+ NEG Urine Nitrite NEG NEG Urine Bilirubin NEG NEG Urine Urobilinogen NEG NEG Urine Leukocyte Esterase SMALL NEG Urine WBC (Auto) 10-30 0-5 /hpf Urine RBC (Auto) 0-4 0-4 /hpf Urine Hyaline Casts (Auto) 1-5 0-5 /lpf Urine Epithelial Cells (Auto) 10-20 0-5 /lpf Urine Bacteria (Auto) NEG NEG White Blood Count 6.08 4.8-10.8 K/uL Red Blood Count 4.18 4.7-6.1 M/uL Hemoglobin 12.9 14.0-18.0 g/dL Hematocrit 38.4 42-52 % Mean Corpuscular Volume 91.9 80-100 fL Mean Corpuscular Hemoglobin 30.9 25-34 pg Mean Corpuscular Hemoglobin Concent 33.6 32-36 g/dl Platelet Count 269 130-400 K/uL Mean Platelet Volume 9.6 7.4-10.4 fL Neutrophils (%) (Auto) 59.2 % Lymphocytes (%) (Auto) 22.7 % Monocytes (%) (Auto) 12.0 % Eosinophils (%) (Auto) 3.1 % Basophils (%) (Auto) 0.7 % Neutrophils # (Auto) 3.60 1.4-6.5 K/uL Lymphocytes # (Auto) 1.38 1.2-3.4 K/uL Monocytes # (Auto) 0.73 0.11-0.59 K/uL Eosinophils # (Auto) 0.19 0-0.5 K/uL Basophils # (Auto) 0.04 0-0.2 K/uL RDW Standard Deviation 44.1 36.4-46.3 fL RDW Coefficient of Variation 13.1 11.5-14.5 % Immature Granulocyte % (Auto) 2.3 % Immature Granulocyte # (Auto) 0.14 0.00-0.02 K/uL Sodium Level 140 136-145 mmol/L Potassium Level 4.1 3.5-5.1 mmol/L Chloride Level 107 98-107 mmol/L Carbon Dioxide Level 25 21-32 mmol/L Anion Gap 7.0 3-11 mmol/L Blood Urea Nitrogen 8 7-18 mg/dl Creatinine 0.85 0.60-1.40 mg/dl Est Creatinine Clear Calc Drug Dose 150.5 ml/min Estimated GFR () 133.6 Estimated GFR (Non- 115.3 BUN/Creatinine Ratio 9.9 10-20 Random Glucose 107 70-99 mg/dl Calcium Level 8.5 8.5-10.1 mg/dl Total Bilirubin 0.3 0.2-1 mg/dl Aspartate Amino Transf (AST/SGOT) 55 15-37 U/L Alanine Aminotransferase (ALT/SGPT) 73 12-78 U/L Alkaline Phosphatase 78 45-117 U/L Total Protein 6.9 6.4-8.2 gm/dl Albumin 2.9 3.4-5.0 gm/dl Globulin 4.0 2.5-4.0 gm/dl Albumin/Globulin Ratio 0.7 0.9-2 Vancomycin Level Trough 19.1 SEE COMMENT mcg/ml
[2017-08-17 13:04] LABS: COD UR NEGATIVE NG/ML (CUTOFF=50); HYDROCOD UR NEGATIVE NG/ML (CUTOFF=50); HYDROMOR UR NEGATIVE NG/ML (CUTOFF=50); MORPHINE UR NEGATIVE NG/ML (CUTOFF=50); NORHYDROCODONE CONF UR NEGATIVE NG/ML (CUTOFF=50); OXYMORPH UR NEGATIVE NG/ML (CUTOFF=50)
[2017-08-17 15:20] VITALS: BP 135/81; PULSE 77; TEMP 36.8; O2SAT 98
[2017-08-17 19:19] VITALS: BP 142/88; PULSE 89; TEMP 36.9; O2SAT 98
[2017-08-18] VITALS (7 sets, daily range): BP systolic 102–147; BP diastolic 64–87; PULSE 60–88; TEMP 36.7–36.9; O2SAT 95–99
[2017-08-18] MEDS ORDERED: VANCOMYCIN TROUGH ONE (07:30)
[2017-08-18 08:34] LABS: CREATININE 0.84 mg/dl (0.60-1.40)
[2017-08-18] MEDS: IBUPROFEN 600 MG TAB PO SCH ×2 (08:53→13:53)
[2017-08-18] MEDS: VANCOMYCIN INJ 1,750 MG in SODIUM CHLORIDE 0.9% 500ML 500 ML IV SCH (08:53)
[2017-08-18] MEDS: COLCHICINE 0.6 MG TAB PO SCH (08:53)
[2017-08-18] MEDS: METOPROLOL SUCC 25MG EXT REL TAB PO SCH (08:54)
--- NOTE | 2017-08-18 12:12 | Pharmacy Progress Note ---
Pharmacy Abx Dose Progress Nt Date of Service Aug 18, 2017. Pharmacy Dosing Scope The patient was receiving the following antimicrobial agents per Pharmacy consult: Vancomycin 1750 mg IV every 8 hours. It has now been changed to Vanco 1750 mg IV q10h based on trough level. Objective Height (Feet): 5 Height (Inches): 11.00 Weight (Kilograms): 102.900 Vital Signs (Past 12Hrs) Vital Signs Past 12 Hours Date Time Temp Pulse Resp B/P (MAP) Pulse Ox O2 Delivery O2 Flow Rate FiO2 08/18/17 11:01 36.7 78 18 132/80 (97) 97 Room Air 08/18/17 08:00 97 Room Air 08/18/17 07:36 36.8 75 18 113/73 (86) 97 Room Air 08/18/17 04:00 Room Air 08/18/17 03:46 36.7 60 18 102/64 (77) 99 Lab Results (24Hrs) Item Value Date Time Vancomycin Level Trough 21.7 mcg/ml 08/18/17 0729 Micro Results Date/Time Source Procedure Growth Status 08/16/17 08:26 Blood Blood Culture - Preliminary NO GROWTH TO DATE. Resulted 08/16/17 08:19 Blood Blood Culture - Preliminary NO GROWTH TO DATE. Resulted 08/15/17 06:43 Blood Blood Culture - Preliminary Gamma Hemolytic Strep. Species Resulted 08/15/17 05:00 Blood Blood Culture - Preliminary NO GROWTH TO DATE. Resulted Risk Factors for Resistance * Antimicrobial use within the last 90 days: Keflex - 2 week course completed on 08/10/17 Assessment & Plan Assessment 31 year old male receiving Vancomycin for treatment of bacteremia- one out of 4 blood cultures positive. Awaiting sensitivities. Day # 3 of antimicrobial therapy Plan Vancomycin IV * Trough level of 21.7 mcg/mL is slightly supratherapeutic. * Change to Vancomycin 1750 mg IV every 10 hours starting at 2000 tonight. * Calculated Ke= 0.10 /hr, t1/2 = 6.9 hrs, Vd = 0.7 L/kg * Goal trough level for Bacteremia: 15 to 20 mcg/mL * Trough Vancomycin level ordered for: 08/19/17 before dose at 1600. * Spoke to Dr. Argueta today about the possibility of discontinuing Vancomycin since only one of 4 blood cultures resulted in G+ cocci (possibly contaminant?) But Dr. Argueta would like to wait for the sensitivities to result before making that decision given her recent hospital admission and antibiotic use. Dr. Argueta said he will d/c tomorrow if necessary after these results are obtained. Pharmacy will continue to follow and will adjust dose/frequency as necessary. Thank you.
--- NOTE | 2017-08-18 14:26 | Progress Note ---
Internal Med Progress Note Date of Service: Aug 18, 2017. Provider Documentation: SUBJECTIVE: Patient denies chest pain overnight. OBJECTIVE: Exam: General Appearance: WD/WN, no apparent distress Eyes: bilateral eyes normal inspection, bilateral eyes EOMI ENT: normal ENT inspection, hearing grossly normal, pharynx normal Neck: supple, no JVD, trachea midline Respiratory/Chest: chest non-tender, lungs clear, normal breath sounds, no respiratory distress, no accessory muscle use Cardiovascular: regular rate, rhythm, no edema Abdomen: normal bowel sounds, non tender, soft, no organomegaly, no pulsatile mass Extremities: normal inspection, no pedal edema, no calf tenderness, right index finger bandaged Neurologic/Psychiatric: no motor/sensory deficits, alert, normal mood/affect, oriented x 3 Skin: normal color, warm/dry, no rash Lymphatic: no adenopathy ASSESSMENT & PLAN: Cardiology note and diagnosis of myopericarditis "initial presentation with sharp chest pain, elevated troponin and normal EKG echo revealed low normal LV function without regional wall motion abnormality and no significant pericardial effusion treated pain as pericardial pain and now resolved now with slight nonspecific EKG changes, likely sequelae of myopericarditis, no overt ischemia troponin trending down no significant arrhythmias on monitor really no role for MRI at this point with normal function, would not change treatment plan to be on the safe side would send home with a 1 week MCOT monitor to follow for ventricular arrhythmias, my office will place d/c home on ibuprofen 600mg TID with food and colchicine 0.6mg bid for 3 months follow with me as outpatient in 2-4 weeks return to ER with symptoms" However patient has 1 positive blood culture for gram positive cocci out of the 2 blood cultures drawn on 08/15/17 on admission. Patient was started on Vancomycin. On 08/16/17, patient's positive blood culture from 08/15/17 has now been demonstrated to be gamma hemolytic strep species. Have spoken with the microbiology lab today an 08/18/16 in regards to awaiting speciation of this blood culture. The microbiology have informed that these results may be available on 08/19/17 Blood cultures from 08/16/17 no growth to date Infectious Disease consultation requested Will continue IV Vancomycin for now CTA showed Two solid pulmonary nodules, one in the right lower lobe measuring 5 mm and one in the left lower lobe measuring 7 mm, will monitor for now, jessica outpatient follow up of lung nodules DVT prophylaxis Disposition: Patient to remain in hospital to received IV antibiotics until speciation of positive blood culture. While it may be possible that the 08/15/17 blood culture can be a contaminant, the preliminary result of gamma hemolytic strep species is of concern because in that group of bacteria, differentials may include Enterococcus faecalis which is associated with high antibiotic resistance. (Parenteral treatment for susceptible enterococcal infections in adults includes vancomycin monotherapy, ampicillin monotherapy, or combination of ampicillin with ceftriaxone.) When patient is cleared from infectious disease health, patient is to follow up with Cardiology with Dr. Carballo and primary care follow up 08/23/2017 11:20 AM Demetris Zaragoza MD General Internal Medicine [facility] Vital Signs: Date Time Temp Pulse Resp B/P (MAP) Pulse Ox O2 Delivery O2 Flow Rate FiO2 08/18/17 12:00 Room Air 08/18/17 11:01 36.7 78 18 132/80 (97) 97 Room Air 08/18/17 08:00 97 Room Air 08/18/17 07:36 36.8 75 18 113/73 (86) 97 Room Air 08/18/17 04:00 Room Air 08/18/17 03:46 36.7 60 18 102/64 (77) 99 08/18/17 00:00 36.9 80 18 118/73 (88) 95 Room Air 08/18/17 00:00 Room Air 08/17/17 20:00 Room Air 08/17/17 19:19 36.9 89 18 142/88 (106) 98 Room Air 08/17/17 16:00 Room Air 08/17/17 15:20 36.8 77 18 135/81 (99) 98 Room Air Lab Results: Results Past 24 Hours Test 08/18/17 07:29 Range/Units Creatinine 0.84 0.60-1.40 mg/dl Est Creatinine Clear Calc Drug Dose 154.1 ml/min Estimated GFR () 134.3 Estimated GFR (Non- 115.9 Vancomycin Level Trough 21.7 SEE COMMENT mcg/ml
[2017-08-18 16:23] LABS: LYME DISEASE AB IGG NEG (NEG); LYME DISEASE AB IGM NEG (NEG)
[2017-08-18] MEDS ORDERED: TPRSR25 PO (18:00)
[2017-08-18] MEDS ORDERED: CLC6 PO ×2 (18:00→18:11)
[2017-08-18] MEDS ORDERED: MTR600 PO (18:00)
--- NOTE | 2017-08-18 18:12 | Medical Consult ---
Consultation Date of Consultation: Aug 18, 2017. Attending Physician: Yoel Argueta M.D. Reason for Consultation: Myocarditis, positive blood cultures History of Present Illness 31-year-old male with no significant past medical history, status post repair of traumatic right index finger injury, who is now admitted to the hospital with approximately 1 week of fever, chills, and then episodes of severe substernal chest pain, rated 8/10 in intensity at worst, not associated with shortness of breath. He eventually came to the emergency department where he was found to have elevated troponins consistent with diagnosis of myopericarditis. He was improving, but now single positive blood culture growing streptococcal species. Patient currently being treated with vancomycin. Currently without pain or fever. Follow-up blood cultures are pending. CT scan of the chest, read by me, shows no obvious pathology. [place], but no obvious tick bites in the past. Past Medical/Surgical History Medical Problems: (1) Chest pain Status: Acute (2) Elevated troponin Status: Acute (3) Flu-like symptoms Status: Acute (4) Open fracture of finger of right hand Status: Acute Medical Problems: (1) Ankle pain (2) Ankle pain (3) Effusion of right elbow (4) Fall (5) Finger laceration involving tendon (6) Head injury (7) Neck pain (8) No Known Active Medical Problems (9) Right elbow pain (10) Shoulder pain, right Family History Patient reports no known family medical history. Social History Smoking Status: Never Smoker Alcohol Use: occasionally Marital Status: Housing Status: lives with family Occupation Status: employed Allergies Coded Allergies: Morphine (Unverified Allergy, Unknown, INTOLERANCE, 08/15/17) Current Inpatient Medications Current Inpatient Medications Medications (Trade) Dose Ordered Sig/Andres Route Start Time Stop Time Status Last Admin Dose Admin Ioversol (Optiray 320) 100 ml UD PRN IV 08/15/17 06:15 08/19/17 06:14 Benzonatate (Tessalon Perles Cap) 100 mg Q6 PRN PO 08/15/17 08:45 09/14/17 08:44 Acetaminophen (Tylenol Tab) 650 mg Q4H PRN PO 08/15/17 08:45 09/14/17 08:44 Ibuprofen (Motrin Tab) 600 mg TID PO 08/15/17 14:00 09/14/17 13:59 08/18/17 13:53 600 MG Colchicine (Colchicine Tab) 0.6 mg BID PO 08/15/17 21:00 09/14/17 20:59 08/18/17 08:53 0.6 MG Oxycodone/ Acetaminophen (Percocet 5-325mg Tab) 2 tab Q4H PRN PO 08/15/17 17:00 08/29/17 16:59 Vancomycin HCl (Consult) 1 ea UD PRN N/A 08/16/17 05:45 09/15/17 05:44 Metoprolol Succinate (Toprol Xl Tab) 25 mg QAM PO 08/17/17 09:00 09/16/17 08:59 08/18/17 08:54 25 MG Vancomycin HCl 1750 mg/Sodium Chloride 535 ml @ 200 mls/hr Q10H IV 08/18/17 20:00 08/30/17 15:59 Review of Systems Constitutional: + fever, + chills, + weakness Eyes: No problem reported ENT: No problem reported Cardiovascular: + chest pain Abdomen: No problem reported Musculoskeletal: No problem reported Genitourinary - Male: No problem reported Neurologic: No problem reported Psychiatric: No problem reported Endocrine: No problem reported Hematologic / Lymphatic: No problem reported Integumentary: No problem reported Allergic / Immunologic: No problem reported Physical Exam Date Time Temp Pulse Resp B/P (MAP) Pulse Ox O2 Delivery O2 Flow Rate FiO2 08/18/17 16:00 Room Air 08/18/17 15:45 36.7 88 20 147/87 (107) 96 Room Air 08/18/17 12:00 Room Air 08/18/17 11:01 36.7 78 18 132/80 (97) 97 Room Air 08/18/17 08:00 97 Room Air 08/18/17 07:36 36.8 75 18 113/73 (86) 97 Room Air 08/18/17 04:00 Room Air 08/18/17 03:46 36.7 60 18 102/64 (77) 99 08/18/17 00:00 36.9 80 18 118/73 (88) 95 Room Air 08/18/17 00:00 Room Air 08/17/17 20:00 Room Air 08/17/17 19:19 36.9 89 18 142/88 (106) 98 Room Air General Appearance: WD/WN, no apparent distress Head: normocephalic, atraumatic Eyes: normal inspection, EOMI, sclerae normal ENT: normal ENT inspection, pharynx normal Neck: supple, no adenopathy, thyroid normal, trachea midline Respiratory/Chest: chest non-tender, lungs clear, normal breath sounds, no respiratory distress Cardiovascular: regular rate, rhythm, no gallop, no murmur Abdomen/GI: normal bowel sounds, non tender, soft, no organomegaly Back: normal inspection, no CVA tenderness Extremities/Musculoskelatal: no calf tenderness, normal capillary refill, non- tender Neurologic/Psych: alert, oriented x 3 Skin: normal color, warm/dry, no rash Lymphatic: no adenopathy Laboratory Results RUN DATE: 08/17/17 [facility] LAB PAGE 1 RUN TIME: 1154 Specimen Inquiry PATIENT: AGUSTIN CHRISTIANSON LOC: C.2T U # : [id number] AGE/SX: 31/M ROOM: [facility] REG : 08/15/[address]: Yoel Argueta M.D. : 1985 BED: 1 DIS : STATUS: ADM IN TLOC: SPEC #: [id number] INEZ: 08/15/1743 STATUS: RES REQ #: [id number] RECD: 08/15/[address] [facility] DR: Cruz Tim PA- C SOURCE: BLOOD ENTR: 08/15/[address] [facility] [address]: Demetris Zaragoza MD [facility]: Michelle Esposito DO ORDERED: BLOOD CULTURE Procedure Result Verified Site BLD CULT Preliminary 08/17/17-1154 Organism 1 GAMMA HEMOLYTIC STREP. SPECIES SENS SENSITIVITY TO FOLLOW Phoned Positive Blood Culture Gram Stain Report to HECTOR LEONE on 08/16/17 At 0532 By RAMÓN. Results were verbalized back to RAMÓN. Last 24 Hours Test 08/18/17 07:29 08/18/17 15:19 Creatinine 0.84 mg/dl Est Creatinine Clear Calc Drug Dose 154.1 ml/min Estimated GFR () 134.3 Estimated GFR (Non- 115.9 Vancomycin Level Trough 21.7 mcg/ml Lyme Disease IgG Antibody NEG Lyme Disease IgM Antibody NEG Patient Name: AGUSTIN CHRISTIANSON Unit Number: [id number] Dictated: 08/15/17712 Transcribed: 08/15/17712 PBS Printed Date/Time: [~ rep prt dt]/[~ rep prt tm] [~ rep ct labl] - [~ rep ct ivnm] [facility] [place] [address] Dictated: 08/15/17712 Transcribed: 08/15/17712 PBS Printed Date/Time: [~ rep prt dt]/[~ rep prt tm] [~ rep ct labl] - [~ rep ct ivnm] FOR PE) ANGIO WITH CLINICAL HISTORY: 31 years-old Male presenting with ^Chest pain. Elevated dimer and trop.. TECHNIQUE: Multidetector CT angiography of the chest was performed after administration of intravenous contrast. 3-D volumetric and/or maximum intensity projection (MIP) images were subsequently reconstructed for review. IV contrast: 94 mL of Optiray 320. A dose lowering technique was used consistent with the principles of ALARA (as low as reasonably achievable). COMPARISON: Chest x-ray performed earlier the same day. CT DOSE (mGy.cm): The estimated cumulative dose is 647.29 mGy.cm. FINDINGS: Packing Attendant topogram: Unremarkable. Pulmonary vasculature: The study is suboptimal given the timing of the contrast bolus and mild respiratory artifact limiting evaluation of subsegmental pulmonary arteries. Allowing for this, no central filling defect to suggest pulmonary embolus. Main pulmonary artery is not enlarged. No flattening of the interventricular septum. No intracardiac intracardiac filling defect. No reflux of contrast into the hepatic veins. Remaining chest: On soft tissue windows, normal thyroid and thoracic inlet. Small bilateral prominent hilar lymph nodes. Normal aorta. Normal heart size. No pericardial or pleural effusion. Upper abdomen normal. On lung windows, solid fissural 5 mm nodule in the right lower lobe (series 4 image 173) minimal mosaic attenuation at the lung bases could relate to the phase of respiration or indicate small airways disease. Mild bronchial wall thickening most pronounced in the lower lobes. Solid peripheral/subpleural 7 mm nodule in the left lower lobe (series 4 image 122). On bone windows, normal osseous structures. IMPRESSION: 1. No evidence of a central pulmonary embolus allowing for the timing of the contrast bolus and respiration. No acute intrathoracic pathology. 2. Two solid pulmonary nodules, one in the right lower lobe measuring 5 mm and one in the left lower lobe measuring 7 mm. Follow-up per Gabriel Society 2017 recommendations below. Please refer to below summary of Fleischner Society 2017 recommendations for follow-up of incidental CT nodules (Emerita Mcdowell et al. Guidelines for management of incidental pulmonary nodules detected on CT images: From the Fleischner Society 2017. Radiology 2017; 284: 228-243.) SOLID NODULES Single nodule; size < 6 mm * Low risk patients: No routine follow-up * High risk patients: Optional CT at 12 months Single nodule; size 6-8 mm * Low risk patients: CT at 6-12 months, then consider CT at 18-24 months * High risk patients: CT at 6-12 months, then at 18-24 months Single nodule; size > 8 mm * Either low or high risk patients: Considered CT at 3 months, PET/CT, or tissue sampling Multiple nodules; size < 6 mm * Low risk patients: No routine follow up * High risk patients: Optional CT at 12 months Multiple nodules; size 6-8 mm * Low risk patients: CT at 3-6 months, then consider CT at 18-24 months * High risk patients: CT at 3-6 months, then at 18-24 months Multiple nodules; size > 8 mm * Low risk patients: CT at 3-6 months, then consider at 18-24 months * High risk patients: CT at 3-6 months, then at 18-24 months Note: These guidelines apply to incidental nodules. These guidelines do not apply to patients younger than 35 years, immunocompromised patients, or patients with cancer. * Low risk patients: Minimal or absent history of smoking and/or other known risk factors * High risk patients: History of smoking, exposure to other carcinogens, emphysema, fibrosis, upper lobe location, family history of lung cancer, etc. * If a nodule up to 8 mm is partly solid or is ground glass, further follow-up is required after 24 months to exclude possible slow growing adenocarcinoma. SUBSOLID NODULES Single ground-glass nodule * Nodule size < 6 mm: No routine follow-up * Nodule size > or = 6 mm: CT at 6-12 months to confirm persistence, then CT every 2 years until 5 years Single part-solid nodule * Nodule size < 6 mm: No routine follow-up * Nodules size > or = 6 mm: CT at 3-6 months to confirm persistence. If unchanged and solid component remains < 6 mm, annual CT should be performed for 5 years Multiple nodules * Nodule size < 6 mm: CT at 3-6 months. If stable, consider CT at 2 and 4 years. * Nodules size > or = 6 mm: CT at 3-6 months. Subsequent management based on the most suspicious nodule(s) Electronically signed by: Ferny Walter M.D. 08/15/2017 7:22 AM Dictated Date/Time: 08/15/2017 7:13 AM The status of this report is Signed. Draft = Not yet reviewed or approved by Radiologist. Signed = Reviewed and approved by Radiologist. <AttendingPhy></AttendingPhy> <FamilyPhy>Demetris Zaragoza MD</FamilyPhy> <PrimaryPhy>Demetris Zaragoza MD</PrimaryPhy> <UnitNumber>[id number]</ UnitNumber> <VisitNumber>[id number]</VisitNumber> <PatientName>AGUSTIN CHRISTIANSON</PatientName> <DateOfBirth>1985</DateOfBirth> <Location>[facility]</ Location> <ServiceDate>08/15/17</ServiceDate> <MNE>ESINDI</MNE> <OrderingPhy> Cruz Tim PA-C</OrderingPhy> <OrderingPhyMNE>f rep ord dr cramer</ OrderingPhyMNE> <DictatingPhyMNE>f rep dict dr cramer</DictatingPhyMNE> <CCListMNE> f rep ct roycee</CCListMNE> <AdmittingPhyMNE>f pt admit dr cramer</AdmittingPhyMNE> < AttendingPhyMNE>f pt attend dr cramer</AttendingPhyMNE> <ConsultingPhyMNE>f pt consult dr cramer</ConsultingPhyMNE> <FamilyPhyMNE>f pt fam dr cramer</FamilyPhyMNE> <OtherPhyMNE>f pt other dr cramer</OtherPhyMNE> < PrimaryPhyMNE>f pt prim care dr cramer</PrimaryPhyMNE> <ReferringPhyMNE>f pt referring dr cramer</ReferringPhyMNE> Assessment & Plan 31-year-old previously healthy male with what appears to be mild pericarditis. I recommended Lyme serology for potential of Lyme carditis, but given negative results, Lyme disease unlikely cause. Single positive blood culture for strep likely represents contamination, follow-up cultures are pending. Unlikely that patient has endocarditis. Case discussed with Dr. Argueta, will follow.
--- NOTE | 2017-08-18 18:15 | Discharge Instructions ---
Discharge Instructions Date of Service Aug 18, 2017. Admission Reason for Admission: Chest Pain, Elevated Troponin Discharge Discharge Diagnosis / Problem: Myocarditis, Incidental pulmonary nodules, treated with antibiotics Discharge Goals Goal(s): Decrease discomfort, Improve function Activity Recommendations Activity Limitations: per Instructions/Follow-up section Lifting Limitations: gradually increase as tolerated Exercise/Sports Limitations: gradually increase as tolerated Shower/Bathe: no limitations . Instructions / Follow-Up Instructions / Follow-Up Cardiology note and diagnosis of myopericarditis by Dr. Carballo "initial presentation with sharp chest pain, elevated troponin and normal EKG echo revealed low normal LV function without regional wall motion abnormality and no significant pericardial effusion treated pain as pericardial pain and now resolved now with slight nonspecific EKG changes, likely sequelae of myopericarditis, no overt ischemia troponin trending down no significant arrhythmias on monitor really no role for MRI at this point with normal function, would not change treatment plan to be on the safe side would send home with a 1 week MCOT monitor to follow for ventricular arrhythmias, my office will place d/c home on ibuprofen 600mg TID with food and colchicine 0.6mg bid for 3 months follow with me as outpatient in 2-4 weeks return to ER with symptoms" patient is to follow up with Cardiology with Dr. Carballo and primary care follow up 08/23/2017 11:20 AM Demetris Zaragoza MD General Internal Medicine [facility] Patient should return to hospital if he develops high fevers, severe chest pain , acute shortness of breath, or loss of consciousness Current Hospital Diet Patient's current hospital diet: Regular Diet Discharge Diet Recommended Diet: Regular Diet Pending Studies Studies pending at discharge: yes List of pending studies: blood culture final speciation for 08/15/17 Laboratory Results Hemoglobin A1c Test 08/15/17 05:00 Range/Units Estimated Average Glucose 100 mg/dl Hemoglobin A1c 5.1 4.5-5.6 % Lipid Panel Test 08/15/17 05:00 Range/Units Triglycerides Level 112 0-150 mg/dl Cholesterol Level 161 0-200 mg/dl HDL Cholesterol 36 mg/dl Cholesterol/HDL Ratio 4.5 LDL Cholesterol, Calculated 103 mg/dl Medical Emergencies . Who to Call and When: Medical Emergencies: If at any time you feel your situation is an emergency, please call 911 immediately. . Non-Emergent Contact Non-Emergency issues call your: Primary Care Provider, Hospice Clinical Supervisor Call Non-Emergent contact if: you have a fever . . "Provider Documentation" section prepared by Yoel Argueta. . VTE Core Measure Inpt VTE Proph given/why not?: SCD's
--- NOTE | 2017-08-18 18:23 | Discharge Summary ---
Discharge Summary Date of Service Aug 18, 2017. Discharge Summary Admission Date: Aug 15, 2017 at 08:35 Discharge Date: Aug 18, 2017 Discharge Disposition: Home Principal Diagnosis: Myocarditis Secondary Diagnoses/Problems: Chest pain, Incidental Pulmonary Nodules. Received IV antibiotics Consultations: cardiology Pending Studies/Follow-Up: blood culture from 08/15/17 Medication Reconciliation New Medications: Colchicine (Colcrys) 0.6 Mg Tab 0.6 MG PO BID for 30 Days, #60 TAB 2 Refills Ibuprofen (Ibuprofen) 600 Mg Tab 600 MG PO TID for 10 Days, #30 TAB Metoprolol Succinate (Metoprolol Succinate ER) 25 Mg Tabcr 25 MG PO QAM for 30 Days, #30 Continued Medications: Acetaminophen (Tylenol) 500 Mg Tab 1000 MG PO DIRECTED PRN for Pain or Fever, TAB Benzonatate (Tessalon Perles) 100 Mg Cap 100 MG PO Q6 PRN for Cough, CAP Discontinued Medications: Ibuprofen (Motrin) 600 Mg Tab 200-600 MG PO DIRECTED PRN for Pain or Fever, #15 TAB pt alternating tylenol and motrin Levofloxacin (Levaquin) 500 Mg Tab 500 MG PO DAILY for 7 Days, TAB Admission Information HPI (per Admitting provider): 31 year old M with PMH of surgery of right hand from traumatic injury and s/p repair with metal fixations and completed 2 week course of Keflex on Saturday, also with 2 and half weeks of flu like symptoms, was found to have fever of 102.1 F on Saturday08/12/17 as per patient, then went to his primary care doctor's office on Saturday08/13/17 with temperature of 103.5F, patient subsequently given Tamiflu for which he completed 3 doses and given Levaquin for which he completed 2 doses, was then having chest pain for 3 episodes before coming to emergency room. Patient reports last night having chest pain from 6 PM that lasted until 7:30 PM. Episode of chest pain before sleep. A third episode of chest pain around 3 AM . Patient was found to have labs significant for POC troponin of 19.98 with subsequent POC troponin of 27.8. D dimer elevated but CTA did not find evidence of a centralpulmonary embolism. CTA noted pulmonary nodules but no pneumonia. In the ED patient given Ketorolac and aspirin 324 mg. Patient seen by hospitalist with vitals of HR 83 bpm, blood pressure 110/74, and 98% saturation on room air. Patient has been afebrile in ER. Patient denies chest pain since being in the ER. Reports that his chest pain is from middle of the chest. No radiation of pain elsewhere. No reproducible tenderness on chest palpation. Patient reports that when he has chest pain, it has been worse when lying flat and feels better with standing upright and taking shows. Physical Exam (per Admitting): General Appearance: no apparent distress Head: normocephalic, atraumatic Eyes: normal inspection, EOMI ENT: normal ENT inspection, hearing grossly normal, pharynx normal Neck: supple, no JVD, trachea midline Respiratory/Chest: chest non-tender, lungs clear, normal breath sounds, no respiratory distress, no accessory muscle use Cardiovascular: regular rate, rhythm, no edema, no JVD Abdomen/GI: normal bowel sounds, non tender, soft Back: normal inspection, no CVA tenderness, no muscle spasm, normal range of motion Extremities/Musculoskelatal: no calf tenderness, normal capillary refill, no pedal edema, normal range of motion, + pertinent finding (right hand in supports due to history of hand surgery) Neurologic/Psych: lab nurse II-XII nml as tested, no motor/sensory deficits, alert , oriented x 3 Skin: normal color, warm/dry Hospital Course Cardiology note and diagnosis of myopericarditis "initial presentation with sharp chest pain, elevated troponin and normal EKG echo revealed low normal LV function without regional wall motion abnormality and no significant pericardial effusion treated pain as pericardial pain and now resolved now with slight nonspecific EKG changes, likely sequelae of myopericarditis, no overt ischemia troponin trending down no significant arrhythmias on monitor really no role for MRI at this point with normal function, would not change treatment plan to be on the safe side would send home with a 1 week MCOT monitor to follow for ventricular arrhythmias, my office will place d/c home on ibuprofen 600mg TID with food and colchicine 0.6mg bid for 3 months follow with me as outpatient in 2-4 weeks return to ER with symptoms" However patient has 1 positive blood culture for gram positive cocci out of the 2 blood cultures drawn on 08/15/17 on admission. Patient was started on Vancomycin. On 08/16/17, patient's positive blood culture from 08/15/17 has now been demonstrated to be gamma hemolytic strep species. Have spoken with the microbiology lab today an 08/18/16 in regards to awaiting speciation of this blood culture. The microbiology have informed that these results may be available on 08/19/17 Blood cultures from 08/16/17 no growth to date Infectious Disease consultation requested Dr. Tan from Infectious disease has informed hospitalist that since second set of blood cultures have no growth, the IV vancomycin can be stopped and that the 1st positive blood culture is likely a contaminant. Dr Tan asked that Lyme disease labs to be sent in regards to further explore etiology for myocarditis. Lyme disease labs has returned as negative on the same day blood was drawn on . Patient to be discharged today on 08/18/17 CTA showed Two solid pulmonary nodules, one in the right lower lobe measuring 5 mm and one in the left lower lobe measuring 7 mm, will monitor for now, jessica outpatient follow up of lung nodules Total time spent on discharge = 60 minutes This includes examination of the patient, discharge planning, medication reconciliation, and communication with other providers. Discharge Instructions Cardiology note and diagnosis of myopericarditis by Dr. Carballo "initial presentation with sharp chest pain, elevated troponin and normal EKG echo revealed low normal LV function without regional wall motion abnormality and no significant pericardial effusion treated pain as pericardial pain and now resolved now with slight nonspecific EKG changes, likely sequelae of myopericarditis, no overt ischemia troponin trending down no significant arrhythmias on monitor really no role for MRI at this point with normal function, would not change treatment plan to be on the safe side would send home with a 1 week MCOT monitor to follow for ventricular arrhythmias, my office will place d/c home on ibuprofen 600mg TID with food and colchicine 0.6mg bid for 3 months follow with me as outpatient in 2-4 weeks return to ER with symptoms" patient is to follow up with Cardiology with Dr. Carballo and primary care follow up 08/23/2017 11:20 AM Demetris Zaragoza MD General Internal Medicine [facility] Patient should return to hospital if he develops high fevers, severe chest pain , acute shortness of breath, or loss of consciousness
[2017-08-18] MEDS ORDERED: VANCOMYCIN INJ 1,750 MG in SODIUM CHLORIDE 0.9% 500ML 500 ML IV SCH (20:00)
[2017-08-19] MEDS ORDERED: VANCOMYCIN TROUGH ONE (15:30)
== END 2017-08-18 19:13 | disposition home or self-care (01) | DRG 316 ==
LOC: C.EDB 04:50 → C.2T 08:35 → ENRESERV 08:42
PROVIDERS: ADMIT Hospitalist; ATTEND Hospitalist
DX: I31.9 Disease of pericardium, unspecified (principal); R07.89 Other chest pain; R91.1 Solitary pulmonary nodule; Z82.49 Family history of ischemic heart disease and other diseases of the circulatory system